=== PATIENT | male | born 1985 | race Caucasian/White ===

== ENCOUNTER 2018-03-10 06:29 | Inpatient (IN) ==
[2018-03-10] MEDS ORDERED: methylPREDNISolone 125 MG/2 ML VIAL IVP ONE (06:33)
[2018-03-10] MEDS ORDERED: Ipratropium/Albuterol Neb 3 ML IH ONE (06:33)
[2018-03-10] MEDS ORDERED: 0.9 % Sodium Chloride 1,000 ML IVC ONE ×4 (06:33→07:08)
[2018-03-10] MEDS ORDERED: Ondansetron 4 MG/2 ML VIAL IVP ONE (06:36)
--- NOTE | 2018-03-10 06:37 | Emergency Department Note ---
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 He further states that he took two 10 mg Percocets yesterday and may have passed out. He is not sure if he vomited or not. However, per EMS report, there does appear to have been emesis on and around the patient.) Severity: severe Consistency/Duration: constant Improves with: oxygen, bronchodilators (EMS reports slight improvement after albuterol treatment), upright position Worsens with: lying flat Known history of: other (Drug abuse) Associated symptoms: Reports: orthopnea, nausea/vomiting, sense of impending doom. Denies: chest pain, pain with inspiration, fever, cough, wheezing, sputum production, lower extremity pain, polyuria, polydipsia, parasthesias, palpitations, hemoptysis, diaphoresis, syncope, abdominal pain, rash Treatment prior to arrival: oxygen, bronchodilator Cough present: No Sputum production: No - Related Data Home oxygen amount: none Home Medications Medication Instructions Recorded Confirmed Atorvastatin Calcium [Lipitor] 20 mg PO HS 03/10/18 03/10/18 Lisinopril [Zestril] 10 mg PO DAILY 03/10/18 03/10/18 Allergies Allergy/AdvReac Type Severity Reaction Status Date / Time No Known Allergies Allergy Verified 03/10/18 09:25 All systems ED: reviewed and negative except as stated. Review of Systems: As Per HPI Constitutional: Denies: fever, chills, weakness Eyes: Denies: vision change ENT ED: Reports: hearing loss (Pt complains of having trouble hearing. Denies hx of hearing problems. Denies trauma.). Denies: throat pain, congestion, dysphagia Cardiovascular: Reports: as per HPI, orthopnea. Denies: chest pain, palpitations, edema, syncope Respiratory: Reports: dyspnea. Denies: cough, wheezes, hemoptysis, stridor, sputum production Gastrointestinal: Reports: nausea, vomiting. Denies: abdominal pain, diarrhea, constipation Musculoskeletal: Reports: back pain ("Chronic" ), myalgia ("Legs were hurting") Integumentary: Denies: rash Neurological: Denies: headache, weakness, confusion, vertigo Endocrine: Reports: fatigue Hematological/Lymphatic: Denies: easy bleeding, easy bruising Past Medical History - Past Medical History Attestation: Yes The following information was validated with the patient. Source: patient Medical history: Reports: hyperlipidemia, hypertension Surgical history: Reports: non-contributory Psychiatric history: Reports: no psych history - Social History Smoking Status: Current every day smoker Alcohol use: Reports: unknown, heavy Drug use: Reports: prescription drug abuse Physical Exam - General Limitations: no limitations General appearance: alert, anxious, in distress - Head Head exam: atraumatic, normocephalic, normal inspection - Eye Eye exam: Present: normal appearance, PERRL, EOMI. Absent: scleral icterus, conjunctival injection, nystagmus, miosis, mydriasis, periorbital swelling - ENT ENT exam: normal oropharynx, mucous membranes dry - Expanded ENT Exam External ear exam: Present: normal external inspection, other (mild injection of TM - bilaterally, mild decreased hearing Right worse than left.). Absent: mastoid tenderness, periauricular adenopathy TM/Canal: Hemotympanum: Negative, Erythema: Negative, Effusion: Negative (mild, left), Perforation: Negative, Loss of Landmarks: Negative, Foreign body: Negative, Cerumen impaction: Negative, Canal discharge: Negative, Canal tenderness: Negative Nose exam: negative: rhinorrhea Mouth exam: Present: normal external inspection, tongue normal. Absent: drooling Teeth exam: Present: normal inspection Throat exam: Present: normal inspection - Neck Neck exam: Present: normal inspection, full ROM, trachea midline. Absent: meningismus, lymphadenopathy - Chest Chest inspection: Present: normal inspection, symmetric chest wall rise. Absent : tenderness - Respiratory Respiratory exam: Present: respiratory distress, other. Absent: wheezes - Expanded Respiratory Exam Location: rhonchi: Lower, Right, Left, decreased breath sounds: Left, Upper - Cardiovascular Cardiovascular exam: Present: normal rhythm, tachycardia - Abdominal Exam Abdominal exam: Present: soft, Non-Tender - Extremities Exam Extremities exam: Present: normal capillary refill. Absent: pedal edema - Neurological Exam Neurological exam: Present: alert, oriented X3, CN II-XII intact - Psychiatric Psychiatric exam: Present: normal affect, anxious - Skin Skin exam: Present: warm, dry, intact, normal color Course Course Narrative: Patient arrives via EMS for evaluation of respiratory distress. Patient seen in conjunction with Dr. Rosa. Per EMS, Patient's oxygen saturation was 80% on room air when they arrived at his house. He was in a tripod position and had notable rales bilaterally. They initiated Albuterol Neb treatments which improved his oxygen saturation to 84%. Upon arrival in the ER. He was at 86-88 % and was receiving his second albuterol Neb treatment. He appears mildly anxious and is tachypnea. He is also tachycardic with a regular rhythm. He is mildly diaphoretic and appears to have vomit on his shirt. There is also a small amount of dried blood on the left side of his face with no signs of trauma to the face or oropharynx. He is able to answer questions with short one word two word answers. He denies history of similar or history of any respiratory illnesses. He has had no recent illnesses or recent travel. No surgeries or procedures. No history of DVT or PE, no known history of coronary artery disease or congenital heart disease. He reported to EMS that he took two Percocet yesterday that he bought off the street. Per review of his past medical records, he was seen here a couple years ago for an overdose. Suspect aspiration pneumonia. Labs, EKG, x-ray, and BiPAP have been ordered. Patient is tolerating BiPAP very well. Oxygen saturation is currently at 98%. He is now able to speak in complete sentences. He requested a drink of water. Patient's EKG shows sinus tach rate of 109, which is an improvement. Upon arrival he was in the 120s. He has nonspecific T-wave abnormality. No previous EKG is available at this time for comparison. Chest x-ray shows diffuse pneumonia of the left lung. Appears to be consistent with aspiration. Blood cultures were ordered and antibiotics have been ordered. Patient's lactate is elevated, greater than five. 30 mL/kg fluid bolus ordered. Patient's vitals are improved. He is A&Ox3. Patient's mother has arrived. She reports that the patient came home from work yesterday and "Did not look well." He complained of back pain, but often has back pain. He went to bed. Patient's father heard patient yelling for help this AM. Patient was reportedly saying that he could not hear and he could not move his legs. Patient states that his legs are now "normal". He describes that they feel "sore all over". - Reevaluation(s) Reevaluation #1: BP is now 111/63. Patient has only received 250cc of NS due to IV position / arm position. He states that he is feeling much better. "Not great, but much better." Oxygen saturation is 94-96% on Bipap. He is still tolerating this very well. He states that his legs are not hurting any more. Dimer elevated and patient's mother reports that patients father and grandmother were recently diagnosed with DVTs. CTA ordered. Time: 07:35 Reevaluation #2: Patient states that his hearing is now back to normal. No leg pain. Sats 94-95% on BiPap. Heart rate 101 and BP 109/85. CTA shows bilateral infiltrates, no PE, hepatic steatosis. Results discussed with the patient. Hospitalist paged. Time: 09:15 Reevaluation #3: Patient now on venti mask, sats still at 94%. He has received 3L of NS. Repeat Lactate 3.9. One additional liter of NS ordered. Time: 09:45 Additional Reevaluation(s): 09:55 Case discussed with the hospitalist, Dr. Jaramillo. He requests that this patient be admitted to the ICU. The creative services writer has been paged. - Consultations Consultation #1: Case discussed with Dr. Mohr. He requests ABG, Stat Echo, Levaquin, and RIP. These orders have been entered. He is concerned for possible flash pulmonary edema. Current fluid bolus has been slowed to 125/hr. Current attending updated on plan. Time: 10:12 Consultation #2: Dr. Layne came to the ER to see the patient. He recommends cancelling the Levaquin. He feels that the patient can be admitted to the Hospitalist. He will speak with Dr. Jaramillo. Time: 10:32 Vital Signs Temperature 97.6 F 03/10/18 06:30 Pulse Rate 116 03/10/18 06:30 Respiratory Rate 28 03/10/18 06:30 Blood Pressure 102/90 03/10/18 06:30 O2 Sat by Pulse Oximetry 90 03/10/18 06:30 Temperature 97.6 F 03/10/18 06:30 Pulse Rate 92 03/10/18 10:29 Respiratory Rate 18 03/10/18 10:29 Blood Pressure 105/71 03/10/18 10:29 O2 Sat by Pulse Oximetry 94 03/10/18 10:29 Oxygen Delivery Oxygen Delivery Oximizer Shortness of Breath/Dyspnea - Differential Diagnosis Likely: congestive heart failure, pneumonia, pulmonary embolism - Medical Records Medical records reviewed: Yes I reviewed the patient's medical records. - Lab Data Lab results reviewed: Yes I reviewed the patient's lab results. Lab results narrative: Laboratory Last Values WBC 14.9 K/mcL (4.3-11.1) H 03/10/18 06:36 RBC 5.50 M/mcL (4.19-5.50) 03/10/18 06:36 Hgb 17.3 g/dL (12.9-16.9) H 03/10/18 06:36 Hct 52.0 % (37.5-50.1) H 03/10/18 06:36 MCV 94.5 fL (83.0-100.0) 03/10/18 06:36 MCH 31.5 pg (28.0-33.3) 03/10/18 06:36 MCHC 33.3 g/dL (31.6-35.5) 03/10/18 06:36 RDW 15.0 % (11.5-14.5) H 03/10/18 06:36 Plt Count 360 K/mcL (140-400) 03/10/18 06:36 MPV 10.5 fL (9.4-12.4) 03/10/18 06:36 Immature Gran % 0.4 % (0-4) 03/10/18 06:36 Seg Neutrophils % 84.9 % 03/10/18 06:36 Lymphocytes % 9.5 % 03/10/18 06:36 Monocytes % 5.0 % 03/10/18 06:36 Eosinophils % 0.0 % 03/10/18 06:36 Basophils % 0.2 % 03/10/18 06:36 Neutrophils # 12.7 K/mcL (1.6-8.9) H 03/10/18 06:36 Lymphocytes # 1.4 K/mcL (0.6-4.6) 03/10/18 06:36 Monocytes # 0.7 K/mcL (0.0-1.3) 03/10/18 06:36 Eosinophils # 0.0 K/mcL (0.0-0.6) 03/10/18 06:36 Basophils # 0.0 K/mcL (0.0-0.2) 03/10/18 06:36 PT 11.8 Seconds (9.4-12.1) 03/10/18 06:36 INR 1.1 03/10/18 06:36 APTT 27.6 Seconds (26.0-36.0) 03/10/18 06:36 D-Dimer 2020 ng/mLFEU (0-500) H 03/10/18 06:36 VBG pH 7.14 pH Units (7.32-7.42) L* 03/10/18 07:00 VBG pCO2 71 mmHg (41-51) H* 03/10/18 07:00 VBG pO2 34 mmHg (25-50) 03/10/18 07:00 VBG HCO3 24 mEq/L (21-27) 03/10/18 07:00 Carboxyhemoglobin 7.7 % (0-5) H 03/10/18 06:36 Sodium 143 mEq/L (136-145) 03/10/18 06:36 Potassium 4.0 mEq/L (3.5-5.1) 03/10/18 06:36 Chloride 109 mEq/L (98-107) H 03/10/18 06:36 Carbon Dioxide 22 mEq/L (23-29) L 03/10/18 06:36 BUN 28 mg/dL (6-20) H 03/10/18 06:36 Creatinine 1.61 mg/dL (0.70-1.30) H 03/10/18 06:36 Est GFR ( Amer) > 60 (> 60) 03/10/18 06:36 Est GFR (Non-Af Amer) 51 (> 60) L 03/10/18 06:36 BUN/Creatinine Ratio 17 (6-26) 03/10/18 06:36 Glucose 113 mg/dL (70-105) H 03/10/18 06:36 Calculated Osmolality 302 (280-300) H 03/10/18 06:36 Lactic Acid 3.9 mmol/L (0.5-2.2) H 03/10/18 08:19 Calcium 9.3 mg/dL (8.6-10.3) 03/10/18 06:36 Total Bilirubin 0.4 mg/dL (0.3-1.0) 03/10/18 06:36 Direct Bilirubin 0.1 mg/dL (0.0-0.2) 03/10/18 06:36 Indirect Bilirubin 0.3 mg/dL (0.0-1.2) 03/10/18 06:36 AST 64 Units/L (13-39) H 03/10/18 06:36 ALT 62 Units/L (7-52) H 03/10/18 06:36 Alkaline Phosphatase 72 Units/L (34-104) 03/10/18 06:36 Creatine Kinase 1602 Units/L (30-223) H 03/10/18 08:19 Troponin I 0.31 ng/mL (< 0.04) H* 03/10/18 06:36 B-Natriuretic Peptide 61 pg/mL (Less than 100) 03/10/18 06:36 Serum Total Protein 7.5 g/dL (6.4-8.9) 03/10/18 06:36 Albumin 4.7 g/dL (3.5-5.7) 03/10/18 06:36 Globulin 2.8 g/dL (2.4-3.5) 03/10/18 06:36 Albumin/Globulin Ratio 1.7 (1.1-2.2) 03/10/18 06:36 Ethyl Alcohol < 10 mg/dL (Less than 10) 03/10/18 06:36 Person Notif of Temitope PINTO 03/10/18 07:00 Result diagrams: 03/10/18 06:36 03/10/18 06:36 Lab Results 03/10/18 03/10/18 03/10/18 Range/Units 06:36 06:36 06:36 WBC 14.9 H (4.3-11.1) K/mcL RBC 5.50 (4.19-5.50) M/mcL Hgb 17.3 H (12.9-16.9) g/dL Hct 52.0 H (37.5-50.1) % MCV 94.5 (83.0-100.0) fL MCH 31.5 (28.0-33.3) pg MCHC 33.3 (31.6-35.5) g/dL RDW 15.0 H (11.5-14.5) % Plt Count 360 (140-400) K/mcL MPV 10.5 (9.4-12.4) fL Immature Gran % 0.4 (0-4) % Seg Neutrophils % 84.9 % Lymphocytes % 9.5 % Monocytes % 5.0 % Eosinophils % 0.0 % Basophils % 0.2 % Neutrophils # 12.7 H (1.6-8.9) K/mcL Lymphocytes # 1.4 (0.6-4.6) K/mcL Monocytes # 0.7 (0.0-1.3) K/mcL Eosinophils # 0.0 (0.0-0.6) K/mcL Basophils # 0.0 (0.0-0.2) K/mcL PT 11.8 (9.4-12.1) Seconds INR 1.1 APTT 27.6 (26.0-36.0) Seconds D-Dimer 2020 H (0-500) ng/mLFEU VBG pH (7.32-7.42) pH Units VBG pCO2 (41-51) mmHg VBG pO2 (25-50) mmHg VBG HCO3 (21-27) mEq/L Carboxyhemoglobin (0-5) % Sodium 143 (136-145) mEq/L Potassium 4.0 (3.5-5.1) mEq/L Chloride 109 H (98-107) mEq/L Carbon Dioxide 22 L (23-29) mEq/L BUN 28 H (6-20) mg/dL Creatinine 1.61 H (0.70-1.30) mg/dL Est GFR ( Amer) > 60 (> 60) Est GFR (Non-Af Amer) 51 L (> 60) BUN/Creatinine Ratio 17 (6-26) Glucose 113 H (70-105) mg/dL Calculated Osmolality 302 H (280-300) Lactic Acid (0.5-2.2) mmol/L Calcium 9.3 (8.6-10.3) mg/dL Total Bilirubin 0.4 (0.3-1.0) mg/dL Direct Bilirubin 0.1 (0.0-0.2) mg/dL Indirect Bilirubin 0.3 (0.0-1.2) mg/dL AST 64 H (13-39) Units/L ALT 62 H (7-52) Units/L Alkaline Phosphatase 72 (34-104) Units/L Creatine Kinase (30-223) Units/L Troponin I 0.31 H* (< 0.04) ng/mL B-Natriuretic Peptide (Less than 100) pg/mL Serum Total Protein 7.5 (6.4-8.9) g/dL Albumin 4.7 (3.5-5.7) g/dL Globulin 2.8 (2.4-3.5) g/dL Albumin/Globulin Ratio 1.7 (1.1-2.2) Urine Opiates Screen (Rayuce=809) ng/mL Ur Barbiturates Screen (Tgidyp=377) ng/mL Ur Phencyclidine Scrn (Cutoff=25) ng/mL Ur Amphetamines Screen (Acjmwe=1436) ng/mL U Benzodiazepines Scrn (Ezmkyq=846) ng/mL Urine Cocaine Screen (Cutoff= 300) ng/mL U Marijuana (THC) Screen (Cutoff = 50) ng/mL Ethyl Alcohol < 10 (Less than 10) mg/dL Person Notif of Crit 03/10/18 03/10/18 03/10/18 Range/Units 06:36 06:36 06:36 WBC (4.3-11.1) K/mcL RBC (4.19-5.50) M/mcL Hgb (12.9-16.9) g/dL Hct (37.5-50.1) % MCV (83.0-100.0) fL MCH (28.0-33.3) pg MCHC (31.6-35.5) g/dL RDW (11.5-14.5) % Plt Count (140-400) K/mcL MPV (9.4-12.4) fL Immature Gran % (0-4) % Seg Neutrophils % % Lymphocytes % % Monocytes % % Eosinophils % % Basophils % % Neutrophils # (1.6-8.9) K/mcL Lymphocytes # (0.6-4.6) K/mcL Monocytes # (0.0-1.3) K/mcL Eosinophils # (0.0-0.6) K/mcL Basophils # (0.0-0.2) K/mcL PT (9.4-12.1) Seconds INR APTT (26.0-36.0) Seconds D-Dimer (0-500) ng/mLFEU VBG pH (7.32-7.42) pH Units VBG pCO2 (41-51) mmHg VBG pO2 (25-50) mmHg VBG HCO3 (21-27) mEq/L Carboxyhemoglobin 7.7 H (0-5) % Sodium (136-145) mEq/L Potassium (3.5-5.1) mEq/L Chloride (98-107) mEq/L Carbon Dioxide (23-29) mEq/L BUN (6-20) mg/dL Creatinine (0.70-1.30) mg/dL Est GFR ( Amer) (> 60) Est GFR (Non-Af Amer) (> 60) BUN/Creatinine Ratio (6-26) Glucose (70-105) mg/dL Calculated Osmolality (280-300) Lactic Acid 5.3 H* (0.5-2.2) mmol/L Calcium (8.6-10.3) mg/dL Total Bilirubin (0.3-1.0) mg/dL Direct Bilirubin (0.0-0.2) mg/dL Indirect Bilirubin (0.0-1.2) mg/dL AST (13-39) Units/L ALT (7-52) Units/L Alkaline Phosphatase (34-104) Units/L Creatine Kinase (30-223) Units/L Troponin I (< 0.04) ng/mL B-Natriuretic Peptide 61 (Less than 100) pg/mL Serum Total Protein (6.4-8.9) g/dL Albumin (3.5-5.7) g/dL Globulin (2.4-3.5) g/dL Albumin/Globulin Ratio (1.1-2.2) Urine Opiates Screen (Lmqagc=766) ng/mL Ur Barbiturates Screen (Epgpiq=725) ng/mL Ur Phencyclidine Scrn (Cutoff=25) ng/mL Ur Amphetamines Screen (Zokehq=9990) ng/mL U Benzodiazepines Scrn (Ltwyhp=707) ng/mL Urine Cocaine Screen (Cutoff= 300) ng/mL U Marijuana (THC) Screen (Cutoff = 50) ng/mL Ethyl Alcohol (Less than 10) mg/dL Person Notif of Crit 03/10/18 03/10/18 03/10/18 Range/Units 07:00 08:19 08:19 WBC (4.3-11.1) K/mcL RBC (4.19-5.50) M/mcL Hgb (12.9-16.9) g/dL Hct (37.5-50.1) % MCV (83.0-100.0) fL MCH (28.0-33.3) pg MCHC (31.6-35.5) g/dL RDW (11.5-14.5) % Plt Count (140-400) K/mcL MPV (9.4-12.4) fL Immature Gran % (0-4) % Seg Neutrophils % % Lymphocytes % % Monocytes % % Eosinophils % % Basophils % % Neutrophils # (1.6-8.9) K/mcL Lymphocytes # (0.6-4.6) K/mcL Monocytes # (0.0-1.3) K/mcL Eosinophils # (0.0-0.6) K/mcL Basophils # (0.0-0.2) K/mcL PT (9.4-12.1) Seconds INR APTT (26.0-36.0) Seconds D-Dimer (0-500) ng/mLFEU VBG pH 7.14 L* (7.32-7.42) pH Units VBG pCO2 71 H* (41-51) mmHg VBG pO2 34 (25-50) mmHg VBG HCO3 24 (21-27) mEq/L Carboxyhemoglobin (0-5) % Sodium (136-145) mEq/L Potassium (3.5-5.1) mEq/L Chloride (98-107) mEq/L Carbon Dioxide (23-29) mEq/L BUN (6-20) mg/dL Creatinine (0.70-1.30) mg/dL Est GFR ( Amer) (> 60) Est GFR (Non-Af Amer) (> 60) BUN/Creatinine Ratio (6-26) Glucose (70-105) mg/dL Calculated Osmolality (280-300) Lactic Acid 3.9 H (0.5-2.2) mmol/L Calcium (8.6-10.3) mg/dL Total Bilirubin (0.3-1.0) mg/dL Direct Bilirubin (0.0-0.2) mg/dL Indirect Bilirubin (0.0-1.2) mg/dL AST (13-39) Units/L ALT (7-52) Units/L Alkaline Phosphatase (34-104) Units/L Creatine Kinase 1602 H (30-223) Units/L Troponin I (< 0.04) ng/mL B-Natriuretic Peptide (Less than 100) pg/mL Serum Total Protein (6.4-8.9) g/dL Albumin (3.5-5.7) g/dL Globulin (2.4-3.5) g/dL Albumin/Globulin Ratio (1.1-2.2) Urine Opiates Screen (Rdjupm=390) ng/mL Ur Barbiturates Screen (Faxvah=053) ng/mL Ur Phencyclidine Scrn (Cutoff=25) ng/mL Ur Amphetamines Screen (Priman=1388) ng/mL U Benzodiazepines Scrn (Msqhho=875) ng/mL Urine Cocaine Screen (Cutoff= 300) ng/mL U Marijuana (THC) Screen (Cutoff = 50) ng/mL Ethyl Alcohol (Less than 10) mg/dL Person Notif of Temitope PINTO 03/10/18 Range/Units 09:49 WBC (4.3-11.1) K/mcL RBC (4.19-5.50) M/mcL Hgb (12.9-16.9) g/dL Hct (37.5-50.1) % MCV (83.0-100.0) fL MCH (28.0-33.3) pg MCHC (31.6-35.5) g/dL RDW (11.5-14.5) % Plt Count (140-400) K/mcL MPV (9.4-12.4) fL Immature Gran % (0-4) % Seg Neutrophils % % Lymphocytes % % Monocytes % % Eosinophils % % Basophils % % Neutrophils # (1.6-8.9) K/mcL Lymphocytes # (0.6-4.6) K/mcL Monocytes # (0.0-1.3) K/mcL Eosinophils # (0.0-0.6) K/mcL Basophils # (0.0-0.2) K/mcL PT (9.4-12.1) Seconds INR APTT (26.0-36.0) Seconds D-Dimer (0-500) ng/mLFEU VBG pH (7.32-7.42) pH Units VBG pCO2 (41-51) mmHg VBG pO2 (25-50) mmHg VBG HCO3 (21-27) mEq/L Carboxyhemoglobin (0-5) % Sodium (136-145) mEq/L Potassium (3.5-5.1) mEq/L Chloride (98-107) mEq/L Carbon Dioxide (23-29) mEq/L BUN (6-20) mg/dL Creatinine (0.70-1.30) mg/dL Est GFR ( Amer) (> 60) Est GFR (Non-Af Amer) (> 60) BUN/Creatinine Ratio (6-26) Glucose (70-105) mg/dL Calculated Osmolality (280-300) Lactic Acid (0.5-2.2) mmol/L Calcium (8.6-10.3) mg/dL Total Bilirubin (0.3-1.0) mg/dL Direct Bilirubin (0.0-0.2) mg/dL Indirect Bilirubin (0.0-1.2) mg/dL AST (13-39) Units/L ALT (7-52) Units/L Alkaline Phosphatase (34-104) Units/L Creatine Kinase (30-223) Units/L Troponin I (< 0.04) ng/mL B-Natriuretic Peptide (Less than 100) pg/mL Serum Total Protein (6.4-8.9) g/dL Albumin (3.5-5.7) g/dL Globulin (2.4-3.5) g/dL Albumin/Globulin Ratio (1.1-2.2) Urine Opiates Screen Negative (Fitjkq=949) ng/mL Ur Barbiturates Screen Negative (Zehmqp=320) ng/mL Ur Phencyclidine Scrn Negative (Cutoff=25) ng/mL Ur Amphetamines Screen Negative (Yqmxeg=8757) ng/mL U Benzodiazepines Scrn Negative (Sjudki=582) ng/mL Urine Cocaine Screen Negative (Cutoff= 300) ng/mL U Marijuana (THC) Screen Negative (Cutoff = 50) ng/mL Ethyl Alcohol (Less than 10) mg/dL Person Notif of Crit - Radiology Data Radiology results reviewed: Yes I reviewed the patient's radiology results.
[2018-03-10] MEDS ORDERED: Clindamycin 900 MG/50 ML 900 MG/50 ML IV.SOLN IVPB ONE (06:52)
[2018-03-10] MEDS ORDERED: Piperacillin/Tazobactam 3.375 GM in 0.9 % Sodium Chloride Mini Bag 100 ML IVPB ONE (06:52)
[2018-03-10 06:57] LABS: Basophils % 0.2 %; Hemoglobin 17.3 g/dL (12.9-16.9); Immature Granulocytes % 0.4 % (0-4); Lymphocytes # 1.4 K/mcL (0.6-4.6); Lymphocytes % 9.5 %; Mean Corpuscular HGB Conc 33.3 g/dL (31.6-35.5); Mean Corpuscular Hemoglobin 31.5 pg (28.0-33.3); Mean Corpuscular Volume 94.5 fL (83.0-100.0); Mean Platelet Volume 10.5 fL (9.4-12.4); Monocytes # 0.7 K/mcL (0.0-1.3); Neutrophils # 12.7 K/mcL (1.6-8.9); Platelet Count 360 K/mcL (140-400); Segmented Neutrophils % 84.9 %
[2018-03-10 07:06] LABS: VBG HCO3 24 mEq/L (21-27); VBG PCO2 71 mmHg (41-51); VBG PH 7.14 pH Units (7.32-7.42); VBG PO2 34 mmHg (25-50)
[2018-03-10 07:17] LABS: INR 1.1; Prothrombin Time 11.8 Seconds (9.4-12.1)
[2018-03-10 07:20] LABS: Activated Partial Thrombo Time 27.6 Seconds (26.0-36.0)
--- NOTE | 2018-03-10 07:22 | Emergency Department Note ---
Disposition Clinical Impression: ARDS (adult respiratory distress syndrome), Severe sepsis Disposition: Admitted As Inpatient Condition: Fair General Adult HPI - General Chief complaint: ED Shortness of Breath/Dyspnea Stated complaint: Breathing problem Time Seen by Provider: 03/10/18 06:32 Source: patient, EMS Mode of arrival: EMS Limitations: no limitations Nursing Notes Reviewed: Yes Vital Signs Reviewed: Yes - History of Present Illness Pain Scale: 0 - Related Data Home Medications Medication Instructions Recorded Confirmed Atorvastatin Calcium [Lipitor] 20 mg PO HS 03/10/18 03/10/18 Lisinopril [Zestril] 10 mg PO DAILY 03/10/18 03/10/18 Allergies Allergy/AdvReac Type Severity Reaction Status Date / Time No Known Allergies Allergy Verified 03/10/18 09:25 Past Medical History - Past Medical History Medical history: Reports: hyperlipidemia, hypertension Psychiatric history: Reports: no psych history - Social History Smoking Status: Current every day smoker Alcohol use: Reports: unknown Drug use: Reports: prescription drug abuse Physical Exam - General Limitations: no limitations General appearance: alert, in distress Course Vital Signs Temperature 97.6 F 03/10/18 06:30 Pulse Rate 116 03/10/18 06:30 Respiratory Rate 28 03/10/18 06:30 Blood Pressure 102/90 03/10/18 06:30 O2 Sat by Pulse Oximetry 90 03/10/18 06:30 Temperature 99.5 F 03/10/18 18:47 Pulse Rate 77 03/10/18 18:47 Respiratory Rate 18 03/10/18 18:47 Blood Pressure 109/57 03/10/18 18:47 O2 Sat by Pulse Oximetry 94 03/10/18 18:47 Oxygen Delivery Oxygen Delivery Oximizer Medical Decision Making - Lab Data Result diagrams: 03/10/18 06:36 03/10/18 06:36 Lab Results 03/10/18 03/10/18 03/10/18 Range/Units 06:36 06:36 06:36 WBC 14.9 H (4.3-11.1) K/mcL RBC 5.50 (4.19-5.50) M/mcL Hgb 17.3 H (12.9-16.9) g/dL Hct 52.0 H (37.5-50.1) % MCV 94.5 (83.0-100.0) fL MCH 31.5 (28.0-33.3) pg MCHC 33.3 (31.6-35.5) g/dL RDW 15.0 H (11.5-14.5) % Plt Count 360 (140-400) K/mcL MPV 10.5 (9.4-12.4) fL Immature Gran % 0.4 (0-4) % Seg Neutrophils % 84.9 % Lymphocytes % 9.5 % Monocytes % 5.0 % Eosinophils % 0.0 % Basophils % 0.2 % Neutrophils # 12.7 H (1.6-8.9) K/mcL Lymphocytes # 1.4 (0.6-4.6) K/mcL Monocytes # 0.7 (0.0-1.3) K/mcL Eosinophils # 0.0 (0.0-0.6) K/mcL Basophils # 0.0 (0.0-0.2) K/mcL PT 11.8 (9.4-12.1) Seconds INR 1.1 APTT 27.6 (26.0-36.0) Seconds D-Dimer 2020 H (0-500) ng/mLFEU Sample Site ABG pH (7.32-7.45) pH Units ABG pCO2 (35-45) mmHg ABG pO2 (85-104) mmHg ABG HCO3 (21-27) mEq/L ABG Total CO2 (20-26) mEq/L ABG O2 Saturation (95-98) % ABG Base Excess (-2 to 3) mEq/L Adi Test VBG pH (7.32-7.42) pH Units VBG pCO2 (41-51) mmHg VBG pO2 (25-50) mmHg VBG HCO3 (21-27) mEq/L Carboxyhemoglobin (0-5) % O2 Delivery Device Inspired O2 (1-15=lpm [id number]=%) Sodium 143 (136-145) mEq/L Potassium 4.0 (3.5-5.1) mEq/L Chloride 109 H (98-107) mEq/L Carbon Dioxide 22 L (23-29) mEq/L BUN 28 H (6-20) mg/dL Creatinine 1.61 H (0.70-1.30) mg/dL Est GFR ( Amer) > 60 (> 60) Est GFR (Non-Af Amer) 51 L (> 60) BUN/Creatinine Ratio 17 (6-26) Glucose 113 H (70-105) mg/dL POC Glucose (70-99) mg/dL Calculated Osmolality 302 H (280-300) Lactic Acid (0.5-2.2) mmol/L Calcium 9.3 (8.6-10.3) mg/dL Total Bilirubin 0.4 (0.3-1.0) mg/dL Direct Bilirubin 0.1 (0.0-0.2) mg/dL Indirect Bilirubin 0.3 (0.0-1.2) mg/dL AST 64 H (13-39) Units/L ALT 62 H (7-52) Units/L Alkaline Phosphatase 72 (34-104) Units/L Creatine Kinase (30-223) Units/L Troponin I 0.31 H* (< 0.04) ng/mL B-Natriuretic Peptide (Less than 100) pg/mL Serum Total Protein 7.5 (6.4-8.9) g/dL Albumin 4.7 (3.5-5.7) g/dL Globulin 2.8 (2.4-3.5) g/dL Albumin/Globulin Ratio 1.7 (1.1-2.2) Urine Opiates Screen (Ogihrw=381) ng/mL Ur Barbiturates Screen (Otfhrl=271) ng/mL Ur Phencyclidine Scrn (Cutoff=25) ng/mL Ur Amphetamines Screen (Cajgka=2467) ng/mL U Benzodiazepines Scrn (Bsyixr=143) ng/mL Urine Cocaine Screen (Cutoff= 300) ng/mL U Marijuana (THC) Screen (Cutoff = 50) ng/mL Ethyl Alcohol < 10 (Less than 10) mg/dL Chlamy pneumoniae PCR (Not Detect) Adenovirus (PCR) (Not Detect) B. pertussis DNA (PCR) (Not Detect) B.parapertussis DNA PCR (Not Detect) Coronavirus OC43 (PCR) (Not Detect) Coronavirus HKU1 (PCR) (Not Detect) Coronavirus 229E (PCR) (Not Detect) Coronavirus NL63 (PCR) (Not Detect) Human Metapneumovir PCR (Not Detect) Influenza A (H1) PCR (Not Detect) Influ A (H1N1/09) PCR (Not Detect) Influenza A (H3) PCR (Not Detect) Influenza A Untype (PCR) (Not Detect) Influenza Type B (PCR) (Not Detect) M.pneumoniae DNA (PCR) (Not Detect) Parainfluenza 1 (PCR) (Not Detect) Parainfluenza 2 (PCR) (Not Detect) Parainfluenza 3 (PCR) (Not Detect) Parainfluenza 4 (PCR) (Not Detect) RSV (PCR) (Not Detect) Entero/Rhino (PCR) (Not Detect) Person Notif of Crit 03/10/18 03/10/18 03/10/18 Range/Units 06:36 06:36 06:36 WBC (4.3-11.1) K/mcL RBC (4.19-5.50) M/mcL Hgb (12.9-16.9) g/dL Hct (37.5-50.1) % MCV (83.0-100.0) fL MCH (28.0-33.3) pg MCHC (31.6-35.5) g/dL RDW (11.5-14.5) % Plt Count (140-400) K/mcL MPV (9.4-12.4) fL Immature Gran % (0-4) % Seg Neutrophils % % Lymphocytes % % Monocytes % % Eosinophils % % Basophils % % Neutrophils # (1.6-8.9) K/mcL Lymphocytes # (0.6-4.6) K/mcL Monocytes # (0.0-1.3) K/mcL Eosinophils # (0.0-0.6) K/mcL Basophils # (0.0-0.2) K/mcL PT (9.4-12.1) Seconds INR APTT (26.0-36.0) Seconds D-Dimer (0-500) ng/mLFEU Sample Site ABG pH (7.32-7.45) pH Units ABG pCO2 (35-45) mmHg ABG pO2 (85-104) mmHg ABG HCO3 (21-27) mEq/L ABG Total CO2 (20-26) mEq/L ABG O2 Saturation (95-98) % ABG Base Excess (-2 to 3) mEq/L Adi Test VBG pH (7.32-7.42) pH Units VBG pCO2 (41-51) mmHg VBG pO2 (25-50) mmHg VBG HCO3 (21-27) mEq/L Carboxyhemoglobin 7.7 H (0-5) % O2 Delivery Device Inspired O2 (1-15=lpm rs30-589=%) Sodium (136-145) mEq/L Potassium (3.5-5.1) mEq/L Chloride (98-107) mEq/L Carbon Dioxide (23-29) mEq/L BUN (6-20) mg/dL Creatinine (0.70-1.30) mg/dL Est GFR ( Amer) (> 60) Est GFR (Non-Af Amer) (> 60) BUN/Creatinine Ratio (6-26) Glucose (70-105) mg/dL POC Glucose (70-99) mg/dL Calculated Osmolality (280-300) Lactic Acid 5.3 H* (0.5-2.2) mmol/L Calcium (8.6-10.3) mg/dL Total Bilirubin (0.3-1.0) mg/dL Direct Bilirubin (0.0-0.2) mg/dL Indirect Bilirubin (0.0-1.2) mg/dL AST (13-39) Units/L ALT (7-52) Units/L Alkaline Phosphatase (34-104) Units/L Creatine Kinase (30-223) Units/L Troponin I (< 0.04) ng/mL B-Natriuretic Peptide 61 (Less than 100) pg/mL Serum Total Protein (6.4-8.9) g/dL Albumin (3.5-5.7) g/dL Globulin (2.4-3.5) g/dL Albumin/Globulin Ratio (1.1-2.2) Urine Opiates Screen (Jjpvve=298) ng/mL Ur Barbiturates Screen (Rrxywl=270) ng/mL Ur Phencyclidine Scrn (Cutoff=25) ng/mL Ur Amphetamines Screen (Ueotfo=4303) ng/mL U Benzodiazepines Scrn (Omxcnv=213) ng/mL Urine Cocaine Screen (Cutoff= 300) ng/mL U Marijuana (THC) Screen (Cutoff = 50) ng/mL Ethyl Alcohol (Less than 10) mg/dL Chlamy pneumoniae PCR (Not Detect) Adenovirus (PCR) (Not Detect) B. pertussis DNA (PCR) (Not Detect) B.parapertussis DNA PCR (Not Detect) Coronavirus OC43 (PCR) (Not Detect) Coronavirus HKU1 (PCR) (Not Detect) Coronavirus 229E (PCR) (Not Detect) Coronavirus NL63 (PCR) (Not Detect) Human Metapneumovir PCR (Not Detect) Influenza A (H1) PCR (Not Detect) Influ A (H1N1/09) PCR (Not Detect) Influenza A (H3) PCR (Not Detect) Influenza A Untype (PCR) (Not Detect) Influenza Type B (PCR) (Not Detect) M.pneumoniae DNA (PCR) (Not Detect) Parainfluenza 1 (PCR) (Not Detect) Parainfluenza 2 (PCR) (Not Detect) Parainfluenza 3 (PCR) (Not Detect) Parainfluenza 4 (PCR) (Not Detect) RSV (PCR) (Not Detect) Entero/Rhino (PCR) (Not Detect) Person Notif of Crit 03/10/18 03/10/18 03/10/18 Range/Units 06:46 07:00 08:19 WBC (4.3-11.1) K/mcL RBC (4.19-5.50) M/mcL Hgb (12.9-16.9) g/dL Hct (37.5-50.1) % MCV (83.0-100.0) fL MCH (28.0-33.3) pg MCHC (31.6-35.5) g/dL RDW (11.5-14.5) % Plt Count (140-400) K/mcL MPV (9.4-12.4) fL Immature Gran % (0-4) % Seg Neutrophils % % Lymphocytes % % Monocytes % % Eosinophils % % Basophils % % Neutrophils # (1.6-8.9) K/mcL Lymphocytes # (0.6-4.6) K/mcL Monocytes # (0.0-1.3) K/mcL Eosinophils # (0.0-0.6) K/mcL Basophils # (0.0-0.2) K/mcL PT (9.4-12.1) Seconds INR APTT (26.0-36.0) Seconds D-Dimer (0-500) ng/mLFEU Sample Site ABG pH (7.32-7.45) pH Units ABG pCO2 (35-45) mmHg ABG pO2 (85-104) mmHg ABG HCO3 (21-27) mEq/L ABG Total CO2 (20-26) mEq/L ABG O2 Saturation (95-98) % ABG Base Excess (-2 to 3) mEq/L Adi Test VBG pH 7.14 L* (7.32-7.42) pH Units VBG pCO2 71 H* (41-51) mmHg VBG pO2 34 (25-50) mmHg VBG HCO3 24 (21-27) mEq/L Carboxyhemoglobin (0-5) % O2 Delivery Device Inspired O2 (1-15=lpm [id number]=%) Sodium (136-145) mEq/L Potassium (3.5-5.1) mEq/L Chloride (98-107) mEq/L Carbon Dioxide (23-29) mEq/L BUN (6-20) mg/dL Creatinine (0.70-1.30) mg/dL Est GFR ( Amer) (> 60) Est GFR (Non-Af Amer) (> 60) BUN/Creatinine Ratio (6-26) Glucose (70-105) mg/dL POC Glucose 114 H (70-99) mg/dL Calculated Osmolality (280-300) Lactic Acid 3.9 H (0.5-2.2) mmol/L Calcium (8.6-10.3) mg/dL Total Bilirubin (0.3-1.0) mg/dL Direct Bilirubin (0.0-0.2) mg/dL Indirect Bilirubin (0.0-1.2) mg/dL AST (13-39) Units/L ALT (7-52) Units/L Alkaline Phosphatase (34-104) Units/L Creatine Kinase (30-223) Units/L Troponin I (< 0.04) ng/mL B-Natriuretic Peptide (Less than 100) pg/mL Serum Total Protein (6.4-8.9) g/dL Albumin (3.5-5.7) g/dL Globulin (2.4-3.5) g/dL Albumin/Globulin Ratio (1.1-2.2) Urine Opiates Screen (Ueokqt=194) ng/mL Ur Barbiturates Screen (Xklhgw=121) ng/mL Ur Phencyclidine Scrn (Cutoff=25) ng/mL Ur Amphetamines Screen (Xxycqr=1264) ng/mL U Benzodiazepines Scrn (Zkopoy=519) ng/mL Urine Cocaine Screen (Cutoff= 300) ng/mL U Marijuana (THC) Screen (Cutoff = 50) ng/mL Ethyl Alcohol (Less than 10) mg/dL Chlamy pneumoniae PCR (Not Detect) Adenovirus (PCR) (Not Detect) B. pertussis DNA (PCR) (Not Detect) B.parapertussis DNA PCR (Not Detect) Coronavirus OC43 (PCR) (Not Detect) Coronavirus HKU1 (PCR) (Not Detect) Coronavirus 229E (PCR) (Not Detect) Coronavirus NL63 (PCR) (Not Detect) Human Metapneumovir PCR (Not Detect) Influenza A (H1) PCR (Not Detect) Influ A (H1N1/09) PCR (Not Detect) Influenza A (H3) PCR (Not Detect) Influenza A Untype (PCR) (Not Detect) Influenza Type B (PCR) (Not Detect) M.pneumoniae DNA (PCR) (Not Detect) Parainfluenza 1 (PCR) (Not Detect) Parainfluenza 2 (PCR) (Not Detect) Parainfluenza 3 (PCR) (Not Detect) Parainfluenza 4 (PCR) (Not Detect) RSV (PCR) (Not Detect) Entero/Rhino (PCR) (Not Detect) Person Notif of Temitope BENEDICT BLAIR 03/10/18 03/10/18 03/10/18 Range/Units 08:19 09:49 10:24 WBC (4.3-11.1) K/mcL RBC (4.19-5.50) M/mcL Hgb (12.9-16.9) g/dL Hct (37.5-50.1) % MCV (83.0-100.0) fL MCH (28.0-33.3) pg MCHC (31.6-35.5) g/dL RDW (11.5-14.5) % Plt Count (140-400) K/mcL MPV (9.4-12.4) fL Immature Gran % (0-4) % Seg Neutrophils % % Lymphocytes % % Monocytes % % Eosinophils % % Basophils % % Neutrophils # (1.6-8.9) K/mcL Lymphocytes # (0.6-4.6) K/mcL Monocytes # (0.0-1.3) K/mcL Eosinophils # (0.0-0.6) K/mcL Basophils # (0.0-0.2) K/mcL PT (9.4-12.1) Seconds INR APTT (26.0-36.0) Seconds D-Dimer (0-500) ng/mLFEU Sample Site ABG pH (7.32-7.45) pH Units ABG pCO2 (35-45) mmHg ABG pO2 (85-104) mmHg ABG HCO3 (21-27) mEq/L ABG Total CO2 (20-26) mEq/L ABG O2 Saturation (95-98) % ABG Base Excess (-2 to 3) mEq/L Adi Test VBG pH (7.32-7.42) pH Units VBG pCO2 (41-51) mmHg VBG pO2 (25-50) mmHg VBG HCO3 (21-27) mEq/L Carboxyhemoglobin (0-5) % O2 Delivery Device Inspired O2 (1-15=lpm ih23-351=%) Sodium (136-145) mEq/L Potassium (3.5-5.1) mEq/L Chloride (98-107) mEq/L Carbon Dioxide (23-29) mEq/L BUN (6-20) mg/dL Creatinine (0.70-1.30) mg/dL Est GFR ( Amer) (> 60) Est GFR (Non-Af Amer) (> 60) BUN/Creatinine Ratio (6-26) Glucose (70-105) mg/dL POC Glucose (70-99) mg/dL Calculated Osmolality (280-300) Lactic Acid 3.7 H (0.5-2.2) mmol/L Calcium (8.6-10.3) mg/dL Total Bilirubin (0.3-1.0) mg/dL Direct Bilirubin (0.0-0.2) mg/dL Indirect Bilirubin (0.0-1.2) mg/dL AST (13-39) Units/L ALT (7-52) Units/L Alkaline Phosphatase (34-104) Units/L Creatine Kinase 1602 H (30-223) Units/L Troponin I (< 0.04) ng/mL B-Natriuretic Peptide (Less than 100) pg/mL Serum Total Protein (6.4-8.9) g/dL Albumin (3.5-5.7) g/dL Globulin (2.4-3.5) g/dL Albumin/Globulin Ratio (1.1-2.2) Urine Opiates Screen Negative (Luqtra=805) ng/mL Ur Barbiturates Screen Negative (Ucyuav=061) ng/mL Ur Phencyclidine Scrn Negative (Cutoff=25) ng/mL Ur Amphetamines Screen Negative (Fzuxou=2120) ng/mL U Benzodiazepines Scrn Negative (Acrxtg=692) ng/mL Urine Cocaine Screen Negative (Cutoff= 300) ng/mL U Marijuana (THC) Screen Negative (Cutoff = 50) ng/mL Ethyl Alcohol (Less than 10) mg/dL Chlamy pneumoniae PCR (Not Detect) Adenovirus (PCR) (Not Detect) B. pertussis DNA (PCR) (Not Detect) B.parapertussis DNA PCR (Not Detect) Coronavirus OC43 (PCR) (Not Detect) Coronavirus HKU1 (PCR) (Not Detect) Coronavirus 229E (PCR) (Not Detect) Coronavirus NL63 (PCR) (Not Detect) Human Metapneumovir PCR (Not Detect) Influenza A (H1) PCR (Not Detect) Influ A (H1N1/09) PCR (Not Detect) Influenza A (H3) PCR (Not Detect) Influenza A Untype (PCR) (Not Detect) Influenza Type B (PCR) (Not Detect) M.pneumoniae DNA (PCR) (Not Detect) Parainfluenza 1 (PCR) (Not Detect) Parainfluenza 2 (PCR) (Not Detect) Parainfluenza 3 (PCR) (Not Detect) Parainfluenza 4 (PCR) (Not Detect) RSV (PCR) (Not Detect) Entero/Rhino (PCR) (Not Detect) Person Notif of Crit 03/10/18 03/10/18 Range/Units 10:31 10:34 WBC (4.3-11.1) K/mcL RBC (4.19-5.50) M/mcL Hgb (12.9-16.9) g/dL Hct (37.5-50.1) % MCV (83.0-100.0) fL MCH (28.0-33.3) pg MCHC (31.6-35.5) g/dL RDW (11.5-14.5) % Plt Count (140-400) K/mcL MPV (9.4-12.4) fL Immature Gran % (0-4) % Seg Neutrophils % % Lymphocytes % % Monocytes % % Eosinophils % % Basophils % % Neutrophils # (1.6-8.9) K/mcL Lymphocytes # (0.6-4.6) K/mcL Monocytes # (0.0-1.3) K/mcL Eosinophils # (0.0-0.6) K/mcL Basophils # (0.0-0.2) K/mcL PT (9.4-12.1) Seconds INR APTT (26.0-36.0) Seconds D-Dimer (0-500) ng/mLFEU Sample Site R Radial ABG pH 7.25 L (7.32-7.45) pH Units ABG pCO2 46 H (35-45) mmHg ABG pO2 69 L (85-104) mmHg ABG HCO3 20 L (21-27) mEq/L ABG Total CO2 22 (20-26) mEq/L ABG O2 Saturation 90 L (95-98) % ABG Base Excess -7 L (-2 to 3) mEq/L Adi Test N/A VBG pH (7.32-7.42) pH Units VBG pCO2 (41-51) mmHg VBG pO2 (25-50) mmHg VBG HCO3 (21-27) mEq/L Carboxyhemoglobin (0-5) % O2 Delivery Device Oxy Mask Inspired O2 6.0 (1-15=lpm fs89-995=%) Sodium (136-145) mEq/L Potassium (3.5-5.1) mEq/L Chloride (98-107) mEq/L Carbon Dioxide (23-29) mEq/L BUN (6-20) mg/dL Creatinine (0.70-1.30) mg/dL Est GFR ( Amer) (> 60) Est GFR (Non-Af Amer) (> 60) BUN/Creatinine Ratio (6-26) Glucose (70-105) mg/dL POC Glucose (70-99) mg/dL Calculated Osmolality (280-300) Lactic Acid (0.5-2.2) mmol/L Calcium (8.6-10.3) mg/dL Total Bilirubin (0.3-1.0) mg/dL Direct Bilirubin (0.0-0.2) mg/dL Indirect Bilirubin (0.0-1.2) mg/dL AST (13-39) Units/L ALT (7-52) Units/L Alkaline Phosphatase (34-104) Units/L Creatine Kinase (30-223) Units/L Troponin I (< 0.04) ng/mL B-Natriuretic Peptide (Less than 100) pg/mL Serum Total Protein (6.4-8.9) g/dL Albumin (3.5-5.7) g/dL Globulin (2.4-3.5) g/dL Albumin/Globulin Ratio (1.1-2.2) Urine Opiates Screen (Qqelqh=900) ng/mL Ur Barbiturates Screen (Uskiie=621) ng/mL Ur Phencyclidine Scrn (Cutoff=25) ng/mL Ur Amphetamines Screen (Ivvdqb=6717) ng/mL U Benzodiazepines Scrn (Hcyils=732) ng/mL Urine Cocaine Screen (Cutoff= 300) ng/mL U Marijuana (THC) Screen (Cutoff = 50) ng/mL Ethyl Alcohol (Less than 10) mg/dL Chlamy pneumoniae PCR Not Detected (Not Detect) Adenovirus (PCR) Not Detected (Not Detect) B. pertussis DNA (PCR) Not Detected (Not Detect) B.parapertussis DNA PCR Not Detected (Not Detect) Coronavirus OC43 (PCR) Not Detected (Not Detect) Coronavirus HKU1 (PCR) Not Detected (Not Detect) Coronavirus 229E (PCR) Not Detected (Not Detect) Coronavirus NL63 (PCR) Not Detected (Not Detect) Human Metapneumovir PCR Not Detected (Not Detect) Influenza A (H1) PCR Not Detected (Not Detect) Influ A (H1N1/09) PCR Not Detected (Not Detect) Influenza A (H3) PCR Not Detected (Not Detect) Influenza A Untype (PCR) Not Detected (Not Detect) Influenza Type B (PCR) Not Detected (Not Detect) M.pneumoniae DNA (PCR) Not Detected (Not Detect) Parainfluenza 1 (PCR) Not Detected (Not Detect) Parainfluenza 2 (PCR) Not Detected (Not Detect) Parainfluenza 3 (PCR) Not Detected (Not Detect) Parainfluenza 4 (PCR) Not Detected (Not Detect) RSV (PCR) Not Detected (Not Detect) Entero/Rhino (PCR) Not Detected (Not Detect) Person Notif of Crit Critical Care Time Critical Care Time: Yes Total Critical Care Time: 30 Attestation: Critical care performed: Time is exclusive of separately billable procedures. Time includes: direct patient care, patient reassessment, coordination of patient care, interpretation of data (laboratory data, radiology data, and respiratory data), review of patient's medical records, medical consultation and documentation of patient care. Procedures included in critical care time: Procedures excluded from critical care time: Attestation Statement - Attestation Attestation: I, Mian Rosa MD, personally evaluated this patient and discussed their management with the midlevel provicer, PAC[employer]. I reviewed the midlevel provider 's note and agree with the documented findings, medical decision making, and plan of care. 32-year-old male presents to the emergency department by ambulance with a complaint of awakening this morning with difficulty breathing. Patient denies any prior history of breathing problems. He denies routine drug or alcohol use. He does admit that he took 2 Percocets last evening. He awoke this morning and had apparently vomited and having difficulty breathing. EMS reports on their arrival the patient was sitting up in a tripod position in respiratory distress. Oxygen saturation in the 80s. They placed patient on oxygen and gave him an albuterol treatment and his oxygen saturation improved initially to about 95 and has gradually dropped down into the upper 80s. Initial oxygen saturation on arrival here was 88% while receiving an albuterol nebulizer. Patient also complains of decreased hearing this morning which is an acute onset problem also. On examination patient is a well-developed well-nourished male in moderate respiratory distress. He is alert and oriented. There is no cyanosis or diaphoresis. Breath sounds are decreased bilaterally with some coarse bilateral rales, left greater than right. No definite wheezes. Heart is tachycardic and regular. Abdomen soft and nontender with bowel sounds present. Pedal edema. A stat portable chest x-ray shows diffuse left lung pneumonia. Labs reviewed. WBC 14.9. PH 7.14. Lactic acid 5.3. Patient was placed on BiPAP here in the emergency department with some improvement in his symptoms. He had improved O2 sats and his tachycardia improved. Blood cultures were obtained and antibiotics initiated. At the end of my shift patient still has some labs pending. The plan is to consult the hospitalist for admission. [facility]. Sujatha Greenfield.
[2018-03-10 07:47] LABS: Alanine Aminotransferase 62 Units/L (7-52); Albumin 4.7 g/dL (3.5-5.7); Albumin/Globulin Ratio 1.7 (1.1-2.2); Alkaline Phosphatase 72 Units/L (34-104); Aspartate Amino Transferase 64 Units/L (13-39); BUN/Creatinine Ratio 17 (6-26); Bilirubin,Direct 0.1 mg/dL (0.0-0.2); Bilirubin,Indirect 0.3 mg/dL (0.0-1.2); Bilirubin,Total 0.4 mg/dL (0.3-1.0); Blood Urea Nitrogen 28 mg/dL (6-20); Calcium 9.3 mg/dL (8.6-10.3); Carbon Dioxide 22 mEq/L (23-29); Chloride 109 mEq/L (98-107); Ethanol < 10 mg/dL (Less than 10); Globulin 2.8 g/dL (2.4-3.5); Glucose 113 mg/dL (70-105); Osmolality,Calculated 302 (280-300); Sodium 143 mEq/L (136-145); Total Protein 7.5 g/dL (6.4-8.9); eGFR For African Americans > 60 (> 60); eGFR For Non-African Americans 51 (> 60)
[2018-03-10] MEDS ORDERED: Isovue-370 500 ML INFUS..BTL IV ONE (07:47)
[2018-03-10 07:48] LABS: Troponin I 0.31 ng/mL (< 0.04)
[2018-03-10] MEDS ORDERED: Aspirin 81 MG TAB.CHEW PO ONE (10:03)
[2018-03-10] MEDS ORDERED: Levofloxacin 750 MG/150 ML 750 MG/150 ML BAG IVPB ONE (10:13)
[2018-03-10 10:20] LABS: Amphetamine Screen,Urine Negative ng/mL (Cutoff=1000); Barbiturate Screen,Urine Negative ng/mL (Cutoff=200); Benzodiazepines Screen,Urine Negative ng/mL (Cutoff=200); Cannabinoid Screen,Urine Negative ng/mL (Cutoff = 50); Cocaine Screen,Urine Negative ng/mL (Cutoff= 300); Opiate Screen,Urine Negative ng/mL (Cutoff=300); Phencyclidine Screen,Urine Negative ng/mL (Cutoff=25)
[2018-03-10 10:34] LABS: ABG Base Excess -7 mEq/L (-2 to 3); ABG HCO3 20 mEq/L (21-27); ABG Oxygen Saturation 90 % (95-98); ABG PCO2 46 mmHg (35-45); ABG PH 7.25 pH Units (7.32-7.45); ABG PO2 69 mmHg (85-104); ABG TCO2 22 mEq/L (20-26)
--- NOTE | 2018-03-10 10:54 | Pulmonology Consult Note ---
<Scott Dupont M - Last Filed: 03/10/18 11:16> Date of Encounter: 03/10/18 Medications and Allergies Atorvastatin Calcium [Lipitor] 20 mg PO HS 03/10/18 [History] Lisinopril [Zestril] 10 mg PO DAILY 03/10/18 [History] 3 Allergy/AdvReac Type Severity Reaction Status Date / Time No Known Allergies Allergy Verified 03/10/18 09:25 All Systems: The remainder of the systems were reviewed and are negative Physical Examination Vital Signs: Vital Signs, Last 4 Hours Pulse Resp BP Pulse Ox 03/10/18 10:29 92 18 105/71 94 03/10/18 09:42 93 20 99/69 93 03/10/18 08:10 93 20 98/52 96 Results - Laboratory Findings CBC and BMP: 03/10/18 06:36 03/10/18 06:36 ABG ABG pH 7.25 pH Units (7.32-7.45) L 03/10/18 10:31 ABG pCO2 46 mmHg (35-45) H 03/10/18 10:31 ABG pO2 69 mmHg (85-104) L 03/10/18 10:31 ABG O2 Saturation 90 % (95-98) L 03/10/18 10:31 PT/INR, D-dimer PT 11.8 Seconds (9.4-12.1) 03/10/18 06:36 D-Dimer 2020 ng/mLFEU (0-500) H 03/10/18 06:36 Abnormal lab findings: Abnormal lab results WBC 14.9 K/mcL (4.3-11.1) H 03/10/18 06:36 Hgb 17.3 g/dL (12.9-16.9) H 03/10/18 06:36 Hct 52.0 % (37.5-50.1) H 03/10/18 06:36 RDW 15.0 % (11.5-14.5) H 03/10/18 06:36 Neutrophils # 12.7 K/mcL (1.6-8.9) H 03/10/18 06:36 D-Dimer 2020 ng/mLFEU (0-500) H 03/10/18 06:36 ABG pH 7.25 pH Units (7.32-7.45) L 03/10/18 10:31 ABG pCO2 46 mmHg (35-45) H 03/10/18 10:31 ABG pO2 69 mmHg (85-104) L 03/10/18 10:31 ABG HCO3 20 mEq/L (21-27) L 03/10/18 10:31 ABG O2 Saturation 90 % (95-98) L 03/10/18 10:31 ABG Base Excess -7 mEq/L (-2 to 3) L 03/10/18 10:31 VBG pH 7.14 pH Units (7.32-7.42) L* 03/10/18 07:00 VBG pCO2 71 mmHg (41-51) H* 03/10/18 07:00 Carboxyhemoglobin 7.7 % (0-5) H 03/10/18 06:36 Chloride 109 mEq/L (98-107) H 03/10/18 06:36 Carbon Dioxide 22 mEq/L (23-29) L 03/10/18 06:36 BUN 28 mg/dL (6-20) H 03/10/18 06:36 Creatinine 1.61 mg/dL (0.70-1.30) H 03/10/18 06:36 Est GFR (Non-Af Amer) 51 (> 60) L 03/10/18 06:36 Glucose 113 mg/dL (70-105) H 03/10/18 06:36 Calculated Osmolality 302 (280-300) H 03/10/18 06:36 Lactic Acid 3.7 mmol/L (0.5-2.2) H 03/10/18 10:24 AST 64 Units/L (13-39) H 03/10/18 06:36 ALT 62 Units/L (7-52) H 03/10/18 06:36 Creatine Kinase 1602 Units/L (30-223) H 03/10/18 08:19 Troponin I 0.31 ng/mL (< 0.04) H* 03/10/18 06:36 - Clinical Findings Intake & Output: Intake & Output 03/09/18 03/10/18 03/10/18 23:59 07:59 15:59 Intake Total 1000 / 1000 Balance 1000 / 1000 Weight 127.006 kg Consult Discharge Plan - Plan Referrals: Valencia Christopher [Primary Care Provider] - - Attending Attestation I examined this patient and my medical decision-making was reviewed with the Resident Physician. I agree with the documented findings, disposition and treatment plan as described except to the extent set forth below. Patient seen and examined. Labs, radiology, chart personally reviewed. Agree with resident's history and physical, assessment, plan with following comments: GUIDEMAN: Patient follows commands, Pulmonary: Acceptable oxygenation and ventilation at this time and most likely explanation for this is aspiration pneumonia. Patient has significant history that is suggestive of obstructive sleep apnea and they suspect with side effect of medication he has aspirated, however other differential diagnosis such as inflammatory lung disease in the differential diagnosis but less likely. Patient was told to follow-up as outpatient regarding evaluation of sleep apnea and I will order it for him. Discussed with the primary team as well as the emergency room physician patient can be treated in 2 N. since he is hemodynamically stable and if no improvement he may need bronchoscopy. Cardiovascular: stable Thank you for consultation <Tapan Mendes - Last Filed: 03/10/18 12:34> Date of Encounter: 03/10/18 Time of Encounter: 10:53 Assessment and Plan (1) Respiratory distress Current Visit: Yes Status: Acute Etiology is unclear at this time. Likely aspiration pneumonia. Patient does have a history of smoking. Patient likely aspirated with potential for reactive airway. Patient was placed on supplemental oxygen and escalated the BiPAP. Patient states he has been feeling better during the time my examination. The patient is not conversational dyspneic. Patient denies a history of obstructive sleep apnea however the patient does snore and has risk factors for MARBIN. At this time the patient does not require mechanically ventilated. The patient may require the use of nocturnal BiPAP. PLAN -Titrate supple oxygen -Insidious spirometry -Doing nebs every 6 when necessary -If the patient symptoms do not improve the patient may require bronchoscopy -Antibiotics per primary. -Outpatient sleep study ordered. (2) Aspiration pneumonia Current Visit: Yes Status: Acute Please see plan as above. Qualifiers: Aspiration pneumonia type: unspecified Laterality: bilateral Lung location: unspecified part of lung Qualified Code(s): J69.0 - Pneumonitis due to inhalation of food and vomit (3) Sepsis Current Visit: Yes Status: Acute Patient did meet SIRS criteria given his tachycardia, tachypnea. Source likely in the lungs given his respiratory status. Patient had blood cultures, adequately resuscitated, appropriate antibiotics given for concerns of aspiration pneumonia. Qualifiers: Sepsis type: sepsis due to unspecified organism Qualified Code(s): A41.9 - Sepsis, unspecified organism (4) Tobacco abuse Current Visit: Yes Status: Acute Tobacco cessation counseling History of Present Illness Consult date: 03/10/18 Requesting physician: Sancho Jaramillo Reason for consult: pneumonia Chief complaint: Shortness of breath History of present illness: 32-year-old male with a history of tobacco use presents for evaluation of shortness of breath and cough. Patient states that he took 2 Percocets last night and was found with vomit on his shirt this morning. Patient states that he has had some chest pain with inspiration as well as a productive cough. Patient denies any fevers. Patient states that he does not typically wear oxygen. EMS report that the patient was in respiratory distress. Patient denies any other symptoms. Patient does state that he snores at night. Patient denies having a CPAP machine at home. Denies a history of asthma. Denies any pets in the home. At the time of my examination the patient is resting comfortably with oxygen mask. Patient does not appear to be conversational dyspneic. Patient's hemodynamically stable. Patient states that he feels much better after the ED interventions. Past Med Surg Social Fam HX - Past Medical History Medical history: hyperlipidemia, hypertension Psychiatric history: no psych history - Past Surgical History Surgical History: non-contributory - Social History Smoking Status: Current every day smoker Alcohol use: unknown, heavy Drug use: prescription drug abuse All Systems: The remainder of the systems were reviewed and are negative - Constitutional Constitutional: as per HPI, no fever(s) - Cardiovascular Cardiovascular: as per HPI, chest pain - Respiratory Respiratory: as per HPI, cough, dyspnea, snoring - Gastrointestinal Gastrointestinal: as per HPI - Genitourinary Genitourinary: as per HPI - Musculoskeletal Musculoskeletal: joint pain - Neurological Neurological: as per HPI Physical Examination Vital Signs: Vital Signs, Last 4 Hours Pulse Resp BP Pulse Ox 03/10/18 10:29 92 18 105/71 94 03/10/18 09:42 93 20 99/69 93 03/10/18 08:10 93 20 98/52 96 03/10/18 06:56 105 27 99/64 92 General appearance: no acute distress Eyes: nonicteric ENT: oropharynx moist Neck: supple Effort: normal Auscultation: left: rales Cardiovascular: regular rate and rhythm Gastrointestinal: normoactive bowel sounds, non-distended Extremities: no cyanosis Musculoskeletal: no deformities normal mental status, non-focal exam, CN II-XII normal Results - Laboratory Findings CBC and BMP: 03/10/18 06:36 03/10/18 06:36 ABG ABG pH 7.25 pH Units (7.32-7.45) L 03/10/18 10:31 ABG pCO2 46 mmHg (35-45) H 03/10/18 10:31 ABG pO2 69 mmHg (85-104) L 03/10/18 10:31 ABG O2 Saturation 90 % (95-98) L 03/10/18 10:31 PT/INR, D-dimer PT 11.8 Seconds (9.4-12.1) 03/10/18 06:36 D-Dimer 2020 ng/mLFEU (0-500) H 03/10/18 06:36 Abnormal lab findings: Abnormal lab results WBC 14.9 K/mcL (4.3-11.1) H 03/10/18 06:36 Hgb 17.3 g/dL (12.9-16.9) H 03/10/18 06:36 Hct 52.0 % (37.5-50.1) H 03/10/18 06:36 RDW 15.0 % (11.5-14.5) H 03/10/18 06:36 Neutrophils # 12.7 K/mcL (1.6-8.9) H 03/10/18 06:36 D-Dimer 2020 ng/mLFEU (0-500) H 03/10/18 06:36 ABG pH 7.25 pH Units (7.32-7.45) L 03/10/18 10:31 ABG pCO2 46 mmHg (35-45) H 03/10/18 10:31 ABG pO2 69 mmHg (85-104) L 03/10/18 10:31 ABG HCO3 20 mEq/L (21-27) L 03/10/18 10:31 ABG O2 Saturation 90 % (95-98) L 03/10/18 10:31 ABG Base Excess -7 mEq/L (-2 to 3) L 03/10/18 10:31 VBG pH 7.14 pH Units (7.32-7.42) L* 03/10/18 07:00 VBG pCO2 71 mmHg (41-51) H* 03/10/18 07:00 Carboxyhemoglobin 7.7 % (0-5) H 03/10/18 06:36 Chloride 109 mEq/L (98-107) H 03/10/18 06:36 Carbon Dioxide 22 mEq/L (23-29) L 03/10/18 06:36 BUN 28 mg/dL (6-20) H 03/10/18 06:36 Creatinine 1.61 mg/dL (0.70-1.30) H 03/10/18 06:36 Est GFR (Non-Af Amer) 51 (> 60) L 03/10/18 06:36 Glucose 113 mg/dL (70-105) H 03/10/18 06:36 Calculated Osmolality 302 (280-300) H 03/10/18 06:36 Lactic Acid 3.7 mmol/L (0.5-2.2) H 03/10/18 10:24 AST 64 Units/L (13-39) H 03/10/18 06:36 ALT 62 Units/L (7-52) H 03/10/18 06:36 Creatine Kinase 1602 Units/L (30-223) H 03/10/18 08:19 Troponin I 0.31 ng/mL (< 0.04) H* 03/10/18 06:36 - Diagnostic Findings Chest x-ray: report reviewed, image reviewed CT scan - chest: report reviewed, image reviewed - Clinical Findings Intake & Output: Intake & Output 03/09/18 03/10/18 03/10/18 23:59 07:59 15:59 Intake Total 1000 / 1000 Balance 1000 / 1000 Weight 127.006 kg
[2018-03-10 11:58] LABS: Adenovirus Not Detected (Not Detect); Bordetella Pertussis Not Detected (Not Detect); Chlamydophila pneumoniae Not Detected (Not Detect); Coronavirus 229E Not Detected (Not Detect); Coronavirus HKU1 Not Detected (Not Detect); Coronavirus NL63 Not Detected (Not Detect); Coronavirus OC43 Not Detected (Not Detect); Human Metapneumovirus Not Detected (Not Detect); Human Rhinovirus/Enterovirus Not Detected (Not Detect); Influenza A Subtype 2009 H1 Not Detected (Not Detect); Influenza A Untypeable Not Detected (Not Detect); Influenza B Not Detected (Not Detect); Mycoplasma pneumoniae Not Detected (Not Detect); Parainfluenza Virus 1 Not Detected (Not Detect); Parainfluenza Virus 2 Not Detected (Not Detect); Parainfluenza Virus 3 Not Detected (Not Detect); Parainfluenza Virus 4 Not Detected (Not Detect); Respiratory Syncytial Virus Not Detected (Not Detect)
[2018-03-10] MEDS ORDERED: Ipratropium/Albuterol Neb 3 ML IH PRN ×2 (12:20→20:04)
[2018-03-10] MEDS ORDERED: Naloxone 0.4 MG/ML INJ IVP PRN (12:37)
--- NOTE | 2018-03-10 12:45 | Internal Med History&Physical ---
Date of Encounter: 03/10/18 Time of Encounter: 12:45 Internal Medicine - H&P: HPI Chief complaint: shortness of breath Admitted From: Emergency Dept Plans for Post Hospital Care: Home History of present illness: Mr. Valerio is a 32 year old male who has a background medical history for hypertension/hyperlipidemia. Patient presented to emergency room with the worsening shortness of breath. 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 He came home and he took couple of Percocet which he obtain from the street. Patient claims that other than these" street Percocet"he did not take any other medications. Apparently after he consumed thos, patient was feeling dizzy and he had a presyncopal multiple episodes. During that time patient had an episode of vomiting. Patient's significant other was at the bedside and she told that they are aware of vomitus all over on his body. Patient was extremely short of breath and that was the reason they brought him to emergency room for further evaluation. Patient denies chest pain, nausea, abdominal pain, diarrhea, Workup in the emergency room: Patient was evaluated in the emergency room. Baseline labs were drawn. Patient was placed on BiPAP. ABG was showing respiratory acidosis. Reason for admission: Likely aspiration pneumonia. Family history: Noncontributory Past Med Surg Social Fam HX - Past Medical History Medical history: hyperlipidemia, hypertension Psychiatric history: no psych history - Past Surgical History Surgical History: non-contributory - Social History Smoking Status: Current every day smoker Alcohol use: unknown, heavy Drug use: prescription drug abuse Internal Medicine - H&P: Meds Atorvastatin Calcium [Lipitor] 20 mg PO HS 03/10/18 [History] Lisinopril [Zestril] 10 mg PO DAILY 03/10/18 [History] 3 Allergy/AdvReac Type Severity Reaction Status Date / Time No Known Allergies Allergy Verified 03/10/18 09:25 All Systems PM: A 10-system review of systems was performed and is negative for pertinent findings except as documented above in the HPI. - Constitutional Constitutional: no chills, no fever(s), no night sweats - EENT Eyes: no change in vision, no discharge, no pain, no photophobia Ears: no ear discharge, no ear pain, no tinnitus Nose, mouth and throat: no dysphagia, no nasal discharge, no neck pain, no sore throat - Cardiovascular Cardiovascular ROS IM: dyspnea, dyspnea on exertion, no chest pain, no diaphoresis, no lightheadedness, no palpitations, no syncope - Respiratory Respiratory: cough, dyspnea, no wheezing, no excessive phlegm production - Gastrointestinal Gastrointestinal: no abdominal pain, no diarrhea, no hematemesis, no hematochezia, no melena, no nausea, no vomiting - Musculoskeletal Musculoskeletal ROS IM: no numbness, no tingling - Integumentary Integumentary IM: no rash, no unusual bruising - Neurological Neurological ROS: no confusion, no convulsions, no focal weakness, no numbness, no tingling, no tremor(s) - Hematologic/Lymphatic Hematologic/Lymphatic: no easy bruising - Constitutional Vitals: Temp Pulse Resp BP Pulse Ox 97.6 F 105 18 105/61 94 03/10/18 06:30 03/10/18 11:25 03/10/18 12:02 03/10/18 12:02 03/10/18 11:25 General appearance: Present: A&O X 3, pleasant, no acute distress, answers questions appropriately - Head Head exam: Present: atraumatic, normocephalic - Eye Eye exam: Present: PERRL, conjuntiva pink, sclera anicteric Pupils: Present: PERRL - Neck Neck exam general surgery: Present: supple, trachea midline. Absent: lymphadenopathy - Respiratory Respiratory exam: Present: CTAB. Absent: accessory muscle use, rales, rhonchi, wheezes - Cardiovascular Cardiovascular exam: Present: RRR, +S1, +S2. Absent: diastolic murmur, gallop, rubs, systolic murmur - GI/Abdominal GI/Abdominal exam: Present: normal bowel sounds, soft, no peritoneal signs. Absent: distended, tenderness - Extremities Exam Extremities exam: Present: warm, radial pulses palpable and symmetrical. Absent : calf tenderness, cyanotic, pedal edema - Neurological Exam Neurological exam: Present: CN II-XII intact, oriented X3, no focal deficits. Absent: pronater drift, facial droop, speech deficit - Skin Skin exam: Present: dry, intact Internal Med - H&P Results - Labs CBC & Chem 7: 03/10/18 06:36 03/10/18 06:36 - Assessment and plan (1) Aspiration pneumonia Current Visit: Yes Status: Acute Assessment and plan: 32/male Had a consumption of a street Percocet. Multiple episodes of vomiting. Admitted with worsening shortness of breath. Likely aspiration pneumonia. Was in the emergency room on a high flow oxygen/Ventimask Plan: Admit as a inpatient. ICU/pulmonology consult. ICU/ pulmonology evaluated this patient in the emergency room. Per ICU/pulmonology: Patient does not need an ICU bed he can go to stepdown unit. ICU/pulmonology recommended antibiotics/bronchodilators. I examined this patient in the emergency department room #21. Patient's significant other was does not at the bedside. Plan of care explained to the patient and family members. The verbalize understanding. Qualifiers: Aspiration pneumonia type: unspecified Laterality: bilateral Lung location: unspecified part of lung Qualified Code(s): J69.0 - Pneumonitis due to inhalation of food and vomit (2) Tobacco abuse Current Visit: Yes Status: Acute Assessment and plan: Patient is a heavy smoker. Patient claims that he will think about quitting smoking. (3) MARBIN (obstructive sleep apnea) Current Visit: Yes Status: Acute Assessment and plan: Patient likely has obstructive sleep apnea. Patient is seen by pulmonology. Pulmonology will manage this issue as outpatient. (4) DVT prophylaxis Current Visit: Yes Status: Acute Assessment and plan: Heparin Medical decision making: This patient has a moderate to severe risk of worsening in spite of being on appropriate medication due to the underlying comorbid conditions. - Time Spent With Patient Total time spent is greater than 50% in coordination of care (as documented) at patient's floor/unit and/or counseling patient:
[2018-03-10] MEDS: 0.9 % Sodium Chloride 1,000 ML IVC SCH ×2 (13:00→23:41)
[2018-03-10] MEDS: *HR* Heparin 5,000 UNIT/ML VIAL SQ SCH ×2 (17:00→23:03)
[2018-03-10] MEDS: Piperacillin/Tazobactam 3.375 GM in 0.9 % Sodium Chloride Mini Bag 100 ML IVPB SCH ×2 (17:00→23:03)
[2018-03-11 01:50] LABS: Alanine Aminotransferase 61 Units/L (7-52); Albumin 3.9 g/dL (3.5-5.7); Albumin/Globulin Ratio 1.7 (1.1-2.2); Alkaline Phosphatase 43 Units/L (34-104); Aspartate Amino Transferase 94 Units/L (13-39); BUN/Creatinine Ratio 18 (6-26); Bilirubin,Total 0.6 mg/dL (0.3-1.0); Blood Urea Nitrogen 16 mg/dL (6-20); Calcium 9.2 mg/dL (8.6-10.3); Carbon Dioxide 23 mEq/L (23-29); Chloride 114 mEq/L (98-107); Chol/HDL Ratio 2.3 (0-4.9); Cholesterol 101 mg/dL (< 200); Globulin 2.3 g/dL (2.4-3.5); Glucose 106 mg/dL (70-105); HDL Cholesterol 43 mg/dL (40-59); LDL Cholesterol,Calculated 53 mg/dL (0-99); Magnesium 1.7 mg/dL (1.6-2.6); Osmolality,Calculated 294 (280-300); Phosphorous 2.2 mg/dL (2.7-4.5); Potassium 4.3 mEq/L (3.5-5.1); Sodium 141 mEq/L (136-145); Total Protein 6.2 g/dL (6.4-8.9); Triglycerides 27 mg/dL (< 150); eGFR For African Americans > 60 (> 60); eGFR For Non-African Americans > 60 (> 60)
[2018-03-11 02:10] LABS: Activated Partial Thrombo Time 27.6 Seconds (26.0-36.0); INR 1.4; Prothrombin Time 15.1 Seconds (9.4-12.1)
[2018-03-11] MEDS ORDERED: Heparin 25,000 UNIT/500 ML D5W 25,000 UNIT/500 ML BAG IVC SCH ×4 (02:45→04:15)
[2018-03-11 02:46] LABS: Basophils % 0.1 %; Hematocrit 39.8 % (37.5-50.1); Hemoglobin 13.8 g/dL (12.9-16.9); Immature Granulocytes % 0.3 % (0-4); Lymphocytes # 1.3 K/mcL (0.6-4.6); Mean Corpuscular HGB Conc 34.7 g/dL (31.6-35.5); Mean Corpuscular Hemoglobin 31.8 pg (28.0-33.3); Mean Corpuscular Volume 91.7 fL (83.0-100.0); Mean Platelet Volume 11.4 fL (9.4-12.4); Monocytes # 1.2 K/mcL (0.0-1.3); Monocytes % 6.4 %; Neutrophils # 16.1 K/mcL (1.6-8.9); Platelet Count 217 K/mcL (140-400); Red Blood Count 4.34 M/mcL (4.19-5.50); Red Cell Distribution Width 15.3 % (11.5-14.5); Segmented Neutrophils % 86.2 %
[2018-03-11 02:51] LABS: Large Platelets Present (Not Present); Platelet Estimate Normal (Normal); Toxic Granulation Present (Not Present)
[2018-03-11 02:52] LABS: Reactive Lymphocytes Present (Not Present)
--- NOTE | 2018-03-11 03:19 | Event Note ---
Date of Encounter: 03/11/18 Time of Encounter: 03:05 I was paged by the patient's nurse that the patient's troponin had increased from previous level. The troponin was 0.33 with previous 0.16, 0.32, 0.31. The patient had a TTE with minimally reduced EF 40-50%. Stat EKG was unremarkeable with no ST or T wave changes. Upon my examination of the patient he was chest pain free and vitals were stable. The patient did report chest pain only when coughing and moving. Due to elevated troponin and reduced EF with no other cardiac history Heparin was started, repeat troponins were ordered, cardiology consult order was placed.
[2018-03-11] MEDS ORDERED: *HR* Heparin 5,000 UNIT/ML VIAL IVP ONE (04:06)
[2018-03-11] MEDS ORDERED: *HR* Heparin 5,000 UNIT/ML VIAL IVP PRN ×2 (04:06)
--- NOTE | 2018-03-11 07:17 | Cardiology Consult Note ---
Date of Encounter: 03/11/18 Time of Encounter: 08:30 Assessment and Plan (1) Systolic CHF, acute Current Visit: Yes Status: Acute A/R/B of LHC, medical management, versus stress testing discussed with him including 1% chance of NE//CVA/CABG/KRISSY/bleeding. Aspirin 81mg daily. TTE shows mild systolic CHF in setting of possible NSTEMI and risk factor including - smoking. At this point he is reluctant to have LHC, will let him think about it and readdress in the morning. (2) Tobacco abuse Current Visit: Yes Status: Acute smoking cessation (3) Elevated troponin Current Visit: Yes Status: Acute trend troponin until peaks, given mild chf on echo, will treat it as ACS Discussion w patient/family: The assessment and plan as outlined above was discussed with the patient and/or family members who expressed understanding and agreement. All questions were answered. Thank you for involving us in the care of your patient. Please call with any questions. History of Present Illness Consult date: 03/11/18 Consult reason: Elevated troponin Chief complaint: dyspnea/chest pain History of present illness: Mr. Valerio is a 32 year old male smoker with no previous cardiac history presents with dyspnea on exertion, nausea/vomiting and chest discomfort. He thinks he has sleep apnea. Around 5am had difficulty breathing then N/V and subsequent chest discomfort. He notes minimal exertional chest tightness that he attributed to his obesity. Overall he does not to engage in medical care. Past Med Surg Social Fam HX - Past Medical History Medical history: hyperlipidemia, hypertension Psychiatric history: no psych history - Past Surgical History Surgical History: non-contributory - Social History Smoking Status: Current every day smoker Alcohol use: unknown Drug use: prescription drug abuse Medications and Allergies Atorvastatin Calcium [Lipitor] 20 mg PO HS 03/10/18 [History] Lisinopril [Zestril] 10 mg PO DAILY 03/10/18 [History] 3 Allergy/AdvReac Type Severity Reaction Status Date / Time No Known Allergies Allergy Verified 03/10/18 09:25 All Systems Review: The remainder of the systems were reviewed and are negative - Constitutional Constitutional: no chills, no fever(s) - EENT Eyes: no loss of vision, no pain - Cardiovascular Cardiovascular: chest pain at rest, chest pain with exertion - Respiratory Respiratory: dyspnea, no hemoptysis - Gastrointestinal Gastrointestinal: no hematemesis, no hematochezia - Genitourinary Genitourinary: no hematuria, no nocturia - Musculoskeletal Musculoskeletal: no muscle cramps, no muscle weakness - Integumentary Integumentary: no rash, no unusual bruising - Neurological Neurological: no syncope, no tingling - Psychiatric Psychiatric: no hallucinations, no panic attacks - Hematological/Lymphatic Hematologic/Lymphatic: no easy bleeding, no easy bruising Physical Examination Vital Signs, Last 4 Hours Temp Pulse Resp BP Pulse Ox 03/11/18 06:27 98.6 F 77 19 120/80 94 General: Conversant HEENT: Atraumatic Neck: No JVD Cardiac: Reg Rate and Rhythm Lungs: Other (occ rhonchi) Neuro: Alert and responsive Abdomen: Soft Skin: No rashes noted on visualized skin Musculoskeletal: No Chest Wall Tenderness Extremities: No Edema Results 03/11/18 01:12 03/11/18 01:12 Lab Results 03/10/18 03/10/18 03/11/18 13:03 19:10 01:12 WBC Hgb Hct Plt Count INR APTT Sodium Potassium Chloride Carbon Dioxide BUN Creatinine Glucose Calcium Magnesium Total Bilirubin AST ALT Alkaline Phosphatase Troponin I 0.32 H* 0.16 H* 0.33 H* B-Natriuretic Peptide 03/11/18 03/11/18 03/11/18 01:12 01:12 01:12 WBC 18.7 H Hgb 13.8 D Hct 39.8 Plt Count 217 INR 1.4 APTT 27.6 Sodium 141 Potassium 4.3 Chloride 114 H Carbon Dioxide 23 BUN 16 Creatinine 0.91 Glucose 106 H Calcium 9.2 Magnesium 1.7 Total Bilirubin 0.6 AST 94 H ALT 61 H Alkaline Phosphatase 43 Troponin I B-Natriuretic Peptide 03/11/18 01:12 WBC Hgb Hct Plt Count INR APTT Sodium Potassium Chloride Carbon Dioxide BUN Creatinine Glucose Calcium Magnesium Total Bilirubin AST ALT Alkaline Phosphatase Troponin I B-Natriuretic Peptide 256 H - EKG Interpretation EKG results cardiology: personally reviewed, sinus rhythm (no acute ischemia) Consult Discharge Plan - Plan Referrals: Valencia Christopher [Primary Care Provider] -
--- NOTE | 2018-03-11 07:41 | Internal Med Progress Note ---
Date of Encounter: 03/11/18 Time of Encounter: 07:20 - Assessment and plan (1) Sepsis Current Visit: Yes Status: Acute Assessment and plan: Patient presented in severe sepsis with elevated white blood cell count, tachycardia, and tachypnea Yet also has reduced ejection fraction, elevated troponins, and presented with BO Currently he continues to have an elevated white blood cell count but resolution of his tachycardia, tachypnea has been seen Resolution of acute kidney injury since arrival but there is continuation of troponin elevation Patient reports nausea and vomiting following consumption of street Percocet Suspect aspiration pneumonia Patient received 1 L of sodium chloride bolus and was continued on normal saline at 70 miles an hour Continue Zosyn started on 03/10/18 Day 1 We will consider changing to Unasyn Continue breathing treatments Qualifiers: Sepsis type: sepsis due to unspecified organism Qualified Code(s): A41.9 - Sepsis, unspecified organism (2) Systolic CHF, acute Current Visit: Yes Status: Acute Assessment and plan: Patient presented with elevated troponins, which is slowly been upward trending Echocardiogram showed severely reduced EF at 45-50%, mild diastolic flattening of the septum, mild global hypokinesis, and borderline pulmonary hypertension EKG showed moderate intraventricular conduction delay Patient denies chest pain Cardiology has been consulted and appreciate recommendations on continued management/care Patient currently on heparin drip Consider nitroglycerin at development of chest pain will start asa, beta-lyndon, and acei Patient already on a statin (3) Aspiration pneumonia Current Visit: Yes Status: Acute Assessment and plan: Patient had onset of symptoms following consumption of Percocet obtained on the street Multiple episodes of vomiting Admitted with worsening shortness of breath, fever/chills, cough Suspect aspiration pneumonia Was in the emergency room on a high flow oxygen/Ventimask Patient is maintaining oxygen saturation in the mid 90s on room air currently Patient hemodynamically stable Pulmonology consult and appreciate continued recommendations Possible bronchoscopy if patient's symptoms do not improve and patient cardiovascularly stable We will continue antibiotics and breathing treatments Qualifiers: Aspiration pneumonia type: unspecified Laterality: bilateral Lung location: unspecified part of lung Qualified Code(s): J69.0 - Pneumonitis due to inhalation of food and vomit (4) Tobacco abuse Current Visit: Yes Status: Acute Assessment and plan: Patient is a heavy smoker Patient claims that he will think about quitting smoking Encourage cessation Nicotine patch if needed (5) MARBIN (obstructive sleep apnea) Current Visit: Yes Status: Acute Assessment and plan: Suspected history of MARBIN Evaluated by pulmonology Outpatient follow-up study recommended (6) DVT prophylaxis Current Visit: Yes Status: Acute Assessment and plan: Patient is on heparin drip currently - Time Spent With Patient Total time spent is greater than 50% in coordination of care (as documented) at patient's floor/unit and/or counseling patient: - Subjective Interval history: Patient reports doing well this morning. He removed his supplemental oxygen as been maintaining oxygen saturations in the low 90s. He reports having continued fever, chills, diaphoresis. He reports mild shortness of breath as well as nonproductive cough. He denies chest pain, palpitations, nausea, or any numbness or tingling. - Constitutional Vitals: Temp Pulse Resp BP Pulse Ox 98.6 F 77 19 120/80 94 03/11/18 06:27 03/11/18 06:27 03/11/18 06:27 03/11/18 06:27 03/11/18 06:27 General appearance: Present: A&O X 3, pleasant, no acute distress, answers questions appropriately Exam: General: Cooperative, pleasant, no acute distress, alert and oriented 3, answers questions appropriately HEENT: Normocephalic, atraumatic, Conjunctiva pink, sclera anicteric, oral mucosa moist Respiratory: No accessory muscle usage, rales present in the left lower lobe Cardiovascular: Regular rate and rhythm, S1 and S2 present, no murmurs/rubs/ gallops/clicks appreciated GI/abdominal: Nondistended, nontender, soft, normal bowel sounds, no peritoneal signs Extremities: No calf tenderness, no pedal edema appreciated, warm, lower extremity pulses palpable and symmetrical Neurological: Alert and oriented 3, no facial droop, no focal deficits Skin: Dry, intact, normal color Internal Medicine: Result - Labs CBC & Chem 7: 03/11/18 01:12 03/11/18 01:12 Labs: Short CBC 03/11/18 Range/Units 01:12 WBC 18.7 H (4.3-11.1) K/mcL Hgb 13.8 D (12.9-16.9) g/dL Hct 39.8 (37.5-50.1) % Plt Count 217 (140-400) K/mcL Neutrophils # 16.1 H (1.6-8.9) K/mcL BMP 03/11/18 01:12 Sodium 141 Potassium 4.3 Chloride 114 H Carbon Dioxide 23 BUN 16 Creatinine 0.91 Glucose 106 H Calcium 9.2 Cardiac Enzymes 03/10/18 03/10/18 03/11/18 Range/Units 13:03 19:10 01:12 Troponin I 0.32 H* 0.16 H* 0.33 H* (< 0.04) ng/mL 03/11/18 Range/Units 06:51 Troponin I 0.49 H* (< 0.04) ng/mL Liver Function 03/11/18 Range/Units 01:12 Total Bilirubin 0.6 (0.3-1.0) mg/dL AST 94 H (13-39) Units/L ALT 61 H (7-52) Units/L Alkaline Phosphatase 43 (34-104) Units/L Albumin 3.9 (3.5-5.7) g/dL - ABG Interpretation ABG results: ABG ABG pH 7.25 pH Units (7.32-7.45) L 03/10/18 10:31 ABG pCO2 46 mmHg (35-45) H 03/10/18 10:31 ABG pO2 69 mmHg (85-104) L 03/10/18 10:31 ABG O2 Saturation 90 % (95-98) L 03/10/18 10:31 PT/INR, D-dimer PT 15.1 Seconds (9.4-12.1) H 03/11/18 01:12 D-Dimer 2020 ng/mLFEU (0-500) H 03/10/18 06:36 Consult Discharge Plan - Plan Referrals: Valencia Christopher [Primary Care Provider] -
[2018-03-11] MEDS: Piperacillin/Tazobactam 3.375 GM in 0.9 % Sodium Chloride Mini Bag 100 ML IVPB SCH (08:45)
--- NOTE | 2018-03-11 10:17 | Pulmonology Progress Note ---
Date of Encounter: 03/11/18 Time of Encounter: 10:00 Assessment and Plan (1) Aspiration pneumonia Status: Acute Patient woke up with vomitus all over his chest he said he took Percocet but his U tox was negative . Looks like polysubstance drug user not telling the truth . To continue the broad spectrum antibiotics. Qualifiers: Aspiration pneumonia type: unspecified Laterality: bilateral Lung location: unspecified part of lung Qualified Code(s): J69.0 - Pneumonitis due to inhalation of food and vomit (2) Systolic CHF, acute Status: Acute Patient presented with bilateral diffuse alveolar infiltrates with ECHO showed systolic function heart failure with global hypokinesis with NSTEMI cardiology recommended LHC Vs Stress test patient not sure what he is going to do . (3) MARBIN (obstructive sleep apnea) Status: Chronic Patient has symptoms of sleep disordered counseled about the importance of treatment will need outpatient follow up for sleep disordered breathing . Subjective Principal diagnosis: Systolic congestive heart Interval history: 32 year old male presented as hypoxic respiratory failure found to have Systolic heart failure not sure abut the chronicity had also possible aspiration patient had some troponin leak NSTEMI now he is better completely off oxygen . Patient has on and off drug abuse but he is not telling the truth still has some shortness of breadth on exertion Objective PUL Vital signs: Last Vital Signs Temp 98.6 F 03/11/18 08:45 Pulse 77 03/11/18 08:45 Resp 19 03/11/18 08:45 BP 120/80 03/11/18 08:45 Pulse Ox 94 03/11/18 08:45 Auscultation: bilateral: clear (otherwise clear ), diminished breath sounds ( basilar ) Results - Laboratory Findings CBC and BMP: 03/11/18 01:12 03/11/18 01:12 ABG ABG pH 7.25 pH Units (7.32-7.45) L 03/10/18 10:31 ABG pCO2 46 mmHg (35-45) H 03/10/18 10:31 ABG pO2 69 mmHg (85-104) L 03/10/18 10:31 ABG O2 Saturation 90 % (95-98) L 03/10/18 10:31 PT/INR, D-dimer PT 15.1 Seconds (9.4-12.1) H 03/11/18 01:12 D-Dimer 2020 ng/mLFEU (0-500) H 03/10/18 06:36 Abnormal lab findings: Abnormal lab results WBC 18.7 K/mcL (4.3-11.1) H 03/11/18 01:12 RDW 15.3 % (11.5-14.5) H 03/11/18 01:12 Neutrophils # 16.1 K/mcL (1.6-8.9) H 03/11/18 01:12 Reactive Lymphocytes Present (Not Present) A 03/11/18 01:12 Toxic Granulation Present (Not Present) A 03/11/18 01:12 Large Platelets Present (Not Present) A 03/11/18 01:12 PT 15.1 Seconds (9.4-12.1) H 03/11/18 01:12 D-Dimer 2020 ng/mLFEU (0-500) H 03/10/18 06:36 ABG pH 7.25 pH Units (7.32-7.45) L 03/10/18 10:31 ABG pCO2 46 mmHg (35-45) H 03/10/18 10:31 ABG pO2 69 mmHg (85-104) L 03/10/18 10:31 ABG HCO3 20 mEq/L (21-27) L 03/10/18 10:31 ABG O2 Saturation 90 % (95-98) L 03/10/18 10:31 ABG Base Excess -7 mEq/L (-2 to 3) L 03/10/18 10:31 VBG pH 7.14 pH Units (7.32-7.42) L* 03/10/18 07:00 VBG pCO2 71 mmHg (41-51) H* 03/10/18 07:00 Carboxyhemoglobin 7.7 % (0-5) H 03/10/18 06:36 Chloride 114 mEq/L (98-107) H 03/11/18 01:12 Glucose 106 mg/dL (70-105) H 03/11/18 01:12 POC Glucose 114 mg/dL (70-99) H 03/10/18 06:46 Lactic Acid 2.6 mmol/L (0.5-2.2) H 03/10/18 20:21 Phosphorus 2.2 mg/dL (2.7-4.5) L 03/11/18 01:12 AST 94 Units/L (13-39) H 03/11/18 01:12 ALT 61 Units/L (7-52) H 03/11/18 01:12 Creatine Kinase 1602 Units/L (30-223) H 03/10/18 08:19 Troponin I 0.49 ng/mL (< 0.04) H* 03/11/18 06:51 B-Natriuretic Peptide 256 pg/mL (Less than 100) H 03/11/18 01:12 Serum Total Protein 6.2 g/dL (6.4-8.9) L 03/11/18 01:12 Globulin 2.3 g/dL (2.4-3.5) L 03/11/18 01:12 - Clinical Findings Intake & Output: Intake & Output 03/10/18 03/11/18 03/11/18 23:59 07:59 15:59 Intake Total 1400 / 1400 100 / 100 420 / 420 Output Total 1550 / 1550 950 / 950 550 / 550 Balance -150 / -150 -850 / -850 -130 / -130 Weight 122.5 kg Consult Discharge Plan - Plan Additional Instructions: Please return to the ER if development of chest pain, difficulty breathing, lightheadedness, or nausea. Fever and chills should also prompt a return to the ER. Please take all medications as prescribed: Augmentin 875 mg two times a day for seven days Increase home Lipitor to 40 mg daily Aspirin 81 mg daily Continue home dose of lisinopril Please follow-up with your PCP in one week Referrals: Valencia Christopher [Primary Care Provider] - Prescriptions: Amoxicillin/Clavulanate [Augmentin] 875 mg PO BIDWM #14 tablet Aspirin 81 mg PO DAILY #30 tab.chew Atorvastatin [Lipitor] 40 mg PO HS #30 tablet
[2018-03-11 11:55] VITALS: BP 126/84
[2018-03-11] MEDS ORDERED: Aspirin 81 MG TAB.CHEW PO SCH (12:00)
--- NOTE | 2018-03-11 13:46 | Discharge Summary ---
<Guy Lopez - Last Filed: 03/11/18 13:39> - NOTES TO OUTPATIENT PROVIDER Notes to Outpatient Provider: Patient presented with worsening dyspnea following vomiting that occurred after feeling of lightheadedness associated with consumption of "street perscocet." He had elevated troponins and an echo showing mild global hypokinesis and reduced ejections fraction of 45-50. He began treatment for aspiration pneumonia and NSTEMI (including Unasyn and heparin gtt). He was seen by cardiology and a heart catheterization was recommended. The patient declined to have this performed. After continuing to trend his troponins (they were trending down at this point) he decided that he wanted to leave [facility]. Myself and his nurse spoke with him to try and convince him , but he decided to leave regardless. He armani need to follow up on his acute CHF as to whether it is due to his possible underlying MARBIN, ischemic disease, or possible drug-induced. He will also be sent out with a full course of Augmentin for his pneumonia. Recommend that he increase his dose of atorvastatin to 40mg daily as well as start 81mg aspirin daily. Orders not resulted at time of discharge: Pending orders 03/11/18 02:40 EKG [ECG 12 lead ECG] [ECG] Stat 03/11/18 19:35 Troponin I Q6H 03/12/18 04:00 BMP [Basic Metabolic Panel] AM 0400 CBC [Complete Blood Count] [HEME] AM 0400 Date of Encounter: 03/11/18 Time of Encounter: 13:25 - Discharge Diagnosis (1) Sepsis Status: Acute Qualifiers: Sepsis type: sepsis due to unspecified organism Qualified Code(s): A41.9 - Sepsis, unspecified organism (2) Systolic CHF, acute Status: Acute (3) Aspiration pneumonia Status: Acute Qualifiers: Aspiration pneumonia type: unspecified Laterality: bilateral Lung location: unspecified part of lung Qualified Code(s): J69.0 - Pneumonitis due to inhalation of food and vomit (4) Tobacco abuse Status: Acute (5) MARBIN (obstructive sleep apnea) Status: Acute (6) DVT prophylaxis Status: Acute Hospital course: Mr. Valerio is a 32 year old male with primary medical history hypertension and hyperlipidemia who presents to [place] on 03/10/18 with worsening shortness of breath. His shortness of breath began after an episode of vomiting at home. This was preceded by him taking "street Percocet" [place], lightheaded and dizzy. At presentation he had elevated troponins and an echo showing mild global hypokinesis and reduced ejections fraction of 45-50. He began treatment for aspiration pneumonia and NSTEMI (including Unasyn and heparin gtt). He was seen by cardiology and a heart catheterization was recommended. The patient declined to have this performed. After continuing to trend his troponins (they were trending down at this point) he decided that he wanted to leave [facility]. His nurse and I spoke with him to try to convince him, but he decided to leave regardless. He armani need to follow up on his acute CHF as to whether it is due to his possible underlying MARBIN, ischemic disease, or possible drug-induced. He will be given a full course of Augmentin for his pneumonia as well as recommendation to increase his dose of Lipitor to 40 mg daily and continue his current dose of lisinopril. He will also be given 81 mg aspirin daily. He will not be given a beta lyndon due to concern of his possible drug use. - Time Spent with Patient Total time spent providing and/or coordinating discharge services: - Discharge Medications Prescriptions: Amoxicillin/Clavulanate [Augmentin] 875 mg PO BIDWM #14 tablet Aspirin 81 mg PO DAILY #30 tab.chew Atorvastatin [Lipitor] 40 mg PO HS #30 tablet Home Medications: Lisinopril [Zestril] 10 mg PO DAILY 03/10/18 [History] Amoxicillin/Clavulanate [Augmentin] 875 mg PO BIDWM #14 tablet 03/11/18 [Rx] Aspirin 81 mg PO DAILY #30 tab.chew 03/11/18 [Rx] Atorvastatin [Lipitor] 40 mg PO HS #30 tablet 03/11/18 [Rx] Allergies/Adverse Reactions: 3 Allergy/AdvReac Type Severity Reaction Status Date / Time No Known Allergies Allergy Verified 03/10/18 09:25 Date of admission: 03/10/18 11:53 Primary care physician: Valencia Christopher Consults: 03/10/18 20:04 Consult to Respiratory Therapy [CONS] Routine Reason for Consult: Please add flutter valve to pts. Kyle tx Call Completed: Yes 03/11/18 02:38 Consult to Cardiology [CONS] Routine Comment: Consulting Provider: Cardiology Karol Reason for Consult: elevated troponin. heparin started. Call Completed: No Discharging clinician: Guy Lopez Anticipated date of discharge: 03/11/18 - Constitutional Vitals: Temp Pulse Resp BP Pulse Ox 98.8 F 75 16 126/84 94 03/11/18 11:55 03/11/18 11:55 03/11/18 11:55 03/11/18 11:55 03/11/18 11:55 General appearance: Present: A&O X 3, pleasant, no acute distress, answers questions appropriately Exam: General: Cooperative, pleasant, no acute distress, alert and oriented 3, answers questions appropriately HEENT: Normocephalic, atraumatic, Conjunctiva pink, sclera anicteric, oral mucosa moist Respiratory: No accessory muscle usage, rales present in the left lower lobe Cardiovascular: Regular rate and rhythm, S1 and S2 present, no murmurs/rubs/ gallops/clicks appreciated GI/abdominal: Nondistended, nontender, soft, normal bowel sounds, no peritoneal signs Extremities: No calf tenderness, no pedal edema appreciated, warm, lower extremity pulses palpable and symmetrical Neurological: Alert and oriented 3, no facial droop, no focal deficits Skin: Dry, intact, normal color - Patient Status Disposition: Left Against Medical Advice Condition: Fair Functional capacity at discharge: independent ambulation Overall status at discharge: patient is not back to baseline - Discharge Instructions Follow Up With: Valencia Christopher [Primary Care Provider] - Additional Instructions: Please return to the ER if development of chest pain, difficulty breathing, lightheadedness, or nausea. Fever and chills should also prompt a return to the ER. Please take all medications as prescribed: Augmentin 875 mg two times a day for seven days Increase home Lipitor to 40 mg daily Aspirin 81 mg daily Continue home dose of lisinopril Please follow-up with your PCP in one week - Diet and Activity Activity: increase activity as tolerated Diet: low fat, low cholesterol <Laith Gleason T - Last Filed: 03/11/18 14:06> Orders not resulted at time of discharge: Pending orders 03/11/18 02:40 EKG [ECG 12 lead ECG] [ECG] Stat 03/11/18 19:35 Troponin I Q6H 03/12/18 04:00 BMP [Basic Metabolic Panel] AM 0400 CBC [Complete Blood Count] [HEME] AM 0400 Date of Encounter: 03/11/18 - Discharge Diagnosis (1) Aspiration pneumonia Priority: Primary Status: Acute Qualifiers: Aspiration pneumonia type: unspecified Laterality: bilateral Lung location: unspecified part of lung Qualified Code(s): J69.0 - Pneumonitis due to inhalation of food and vomit (2) Sepsis Priority: Primary Status: Acute Qualifiers: Sepsis type: sepsis due to unspecified organism Qualified Code(s): A41.9 - Sepsis, unspecified organism (3) Tobacco abuse Priority: Secondary Status: Chronic (4) MARBIN (obstructive sleep apnea) Priority: Secondary Status: Chronic (5) DVT prophylaxis Priority: Secondary Status: Resolved (6) Systolic CHF, acute Priority: Primary Status: Acute Hospital course: Mr. Valerio is a 32 year old male Discharge discussed with: patient, nurse, business analyst consultant - Time Spent with Patient Total time spent providing and/or coordinating discharge services: Less than 30 minutes Date of admission: 03/10/18 11:53 Primary care physician: Valencia Christopher Consults: 03/10/18 20:04 Consult to Respiratory Therapy [CONS] Routine Reason for Consult: Please add flutter valve to pts. DuoNeb tx Call Completed: Yes 03/11/18 02:38 Consult to Cardiology [CONS] Routine Comment: Consulting Provider: Cardiology Karol Reason for Consult: elevated troponin. heparin started. Call Completed: No - Constitutional Vitals: Temp Pulse Resp BP Pulse Ox 98.8 F 75 16 126/84 94 03/11/18 11:55 03/11/18 11:55 03/11/18 11:55 03/11/18 11:55 03/11/18 11:55 - Attending Attestation I examined this patient and my medical decision-making was reviewed with the Resident Physician on 03/11/18. I agree with the documented findings, disposition and treatment plan as described except to the extent set forth below. Syncope Pum edema Acute hypoxic resp failure-now resolved, on room air at time of eval Asp PNA Acute CHFrEF Suspected NSTEMI Patient was seen by cardio-declined LHC, Pulm following. Later signed AMA Rest of details as in the resident physician's documentation
[2018-03-11] MEDS ORDERED: Ampicillin/Sulbactam 3,000 MG in 0.9 % Sodium Chloride Mini Bag 100 ML IVPB SCH (18:00)
--- NOTE | 2018-03-12 13:14 | Electrocardiograph Report ---
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
--- NOTE | 2018-03-12 15:31 | Electrocardiograph Report ---
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
== END 2018-03-11 14:03 | disposition left against medical advice (07) | DRG 720 ==
LOC: EMEROO 06:29 → 2NNU 11:53 → SUATTDRO 11:53 → 2NNU 12:24
PROVIDERS: ADMIT Hospitalist; ATTEND Internal Medicine